=== PATIENT | female | born 1955 | race American Indian/Alaskan Native ===

== ENCOUNTER 2019-05-05 13:07 | Emergency (ER) | payer OTHER ==
--- NOTE | 2019-05-05 13:30 | Event Note ---
ED Screening Note Date of service: 05/05/19 Time: 13:24 ED Screening Note: 63 y o female was called by her PCP and told to go to ER for evaluation of abnormal labs cc of mid sternal chest pain states resolved This initial assessment/diagnostic orders/clinical plan/treatment(s) is/are subject to change based on patients health status, clinical progression and re- assessment by fellow clinical providers in the ED. Further treatment and workup at subsequent clinical providers discretion. Patient/guardian urged not to elope from the ED as their condition may be serious if not clinically assessed and managed. Initial orders include: cbc, cmp
[2019-05-05 16:13] LABS: Basophils % (Auto) 1.1 % (0.0-1.8); Eosinophils % (Auto) 1.3 % (0.0-4.3); Hemoglobin 12.2 gm/dl (10.1-14.3); Lymphocytes # (Auto) 1.1 K/mm3 (1.2-5.4); Lymphocytes % (Auto) 40.2 % (13.4-35.0); Mean Corpuscular HGB Conc 34 % (30-34); Mean Corpuscular Volume 98 fl (79-97); Monocytes # (Auto) 0.2 K/mm3 (0.0-0.8); Monocytes % (Auto) 7.5 % (0.0-7.3); Platelet Count 202 K/mm3 (140-440); Red Blood Count 3.69 M/mm3 (3.65-5.03); Red Cell Distribution Width 15.7 % (13.2-15.2)
[2019-05-05 16:30] LABS: Alanine Aminotransferase 25 units/L (7-56); Albumin 5.1 g/dL (3.9-5); BUN/Creatinine Ratio 14; Blood Urea Nitrogen 10 mg/dL (7-17); Calcium 9.4 mg/dL (8.4-10.2); Hemolysis Index 8
[2019-05-05] MEDS ORDERED: ONDANSETRON 4 MG/2 ML INJ IV ONE (18:15)
[2019-05-05] MEDS ORDERED: SODIUM CHLORIDE 0.9% 1000 ML 1,000 ML IV ONE (18:15)
--- NOTE | 2019-05-05 18:17 | Emergency Department Report ---
ED Abdominal Pain HPI - General Chief Complaint: Abdominal Pain Stated Complaint: HIGH LABS Time Seen by Provider: 05/05/19 17:48 Source: patient Mode of arrival: Ambulatory Limitations: No Limitations - History of Present Illness Initial Comments: This is a pleasant 63 yo AAF who presents to the ED with a chief complaint of N/V, non radiating epigastric and RUQ pain for the past 2 weeks. She reports she has not been able to tolerate her normal diet since this started due to vomiting with certian foods. She sent to urgent care 2 days ago and had her labs checked and it showed elevated lipase and triglycerides and they told her to come to the ED. She denies hematemesis, melena, hematochezia, fever, chills, night sweats, dizzienss, chest pain, shortness of breath or any other related symptoms. - Related Data Previous Rx's Medication Instructions Recorded Last Taken Type Omeprazole Magnesium [Prilosec] 20 mg PO QDAY #30 suspdr.pkt 05/05/19 Unknown Rx Ondansetron [Zofran Odt] 4 mg PO Q8HR 7 Days #21 tab.rapdis 05/05/19 Unknown Rx Sucralfate [Carafate] 1 gm PO ACHS #60 udc 05/05/19 Unknown Rx Allergies Allergy/AdvReac Type Severity Reaction Status Date / Time codeine AdvReac Unknown Verified 05/05/19 13:17 ED Review of Systems ROS: Stated complaint: HIGH LABS Other details as noted in HPI Constitutional: denies: chills, fever Eyes: denies: eye pain, eye discharge, vision change ENT: denies: ear pain, throat pain Respiratory: denies: cough, shortness of breath, wheezing Cardiovascular: denies: chest pain, palpitations Endocrine: no symptoms reported Gastrointestinal: as per HPI, abdominal pain, nausea, vomiting. denies: diar keanu, constipation, hematemesis, melena, hematochezia Genitourinary: denies: urgency, dysuria, discharge Musculoskeletal: denies: back pain, joint swelling, arthralgia Skin: denies: rash, lesions Neurological: denies: headache, weakness, paresthesias Psychiatric: denies: anxiety, depression Hematological/Lymphatic: denies: easy bleeding, easy bruising ED Past Medical Hx - Past Medical History Previous Medical History?: Yes Hx Hypertension: Yes Additional medical history: high cholesterol - Surgical History Past Surgical History?: Yes Additional Surgical History: knee surgery, appendectomy - Social History Smoking Status: Never Smoker Substance Use Type: None - Medications Home Medications: Home Medications Medication Instructions Recorded Confirmed Last Taken Type Omeprazole Magnesium [Prilosec] 20 mg PO QDAY #30 suspdr.pkt 05/05/19 Unknown Rx Ondansetron [Zofran Odt] 4 mg PO Q8HR 7 Days #21 tab.rapdis 05/05/19 Unknown Rx Sucralfate [Carafate] 1 gm PO ACHS #60 udc 05/05/19 Unknown Rx ED Physical Exam - General Limitations: No Limitations General appearance: alert, in no apparent distress - Head Head exam: Present: atraumatic, normocephalic - Eye Eye exam: Present: normal appearance - ENT ENT exam: Present: mucous membranes moist - Neck Neck exam: Present: normal inspection - Respiratory Respiratory exam: Present: normal lung sounds bilaterally. Absent: respiratory distress - Cardiovascular Cardiovascular Exam: Present: regular rate, normal rhythm. Absent: systolic murmur, diastolic murmur, rubs, gallop - GI/Abdominal GI/Abdominal exam: Present: soft, tenderness (mild epigastric tenderness to palpation, negative Phillips sign, negative McBurney's point tenderness, no rebound or guarding normal bowel sounds), normal bowel sounds - Extremities Exam Extremities exam: Present: normal inspection - Back Exam Back exam: Present: normal inspection - Neurological Exam Neurological exam: Present: alert, oriented X3 - Psychiatric Psychiatric exam: Present: normal affect, normal mood - Skin Skin exam: Present: warm, dry, intact, normal color. Absent: rash ED Medical Decision Making - Lab Data Result diagrams: 05/05/19 15:56 05/05/19 15:56 - Medical Decision Making Patient is nontoxic in no acute distress. Presents with epigastric abdominal pain primarily after eating. Has seen GI as recently as one year ago and had an endoscopy and colonoscopy that showed inflammation of the stomach. She was originally on a PPI however stopped taking it. She has a follow-up appointment with her GI doctor next month on the . Clinically she had no evidence of cholecystitis. Liver function and bili were normal and there is no Phillips sign on exam. CT of the abdomen did not show any evidence of cholecystitis or any other acute process. Her lipase was slightly above the upper limit of normal at the urgent care her lipase was 400 however here it had decreased in the 200s. I recommended increase by mouth hydration and following up with her primary care doctor and GI specialist. I suspect this could also be related to pain from peptic ulcer disease and will send home with Prilosec and Carafate. Educated about GERD and symptoms of PUD including avoiding NSAIDs. I also considered ACS however the patient had no chest pain, shortness of breath, or exertional symptoms. I did order an EKG however the patient did not want to wait for this and decided she wanted to go. She understood that without this could not rule out a potential condition however again this time and think this is very unlikely. I also considered PE however without any pleuritic pain, shortness of breath, hemoptysis, recent travel, lower extremity edema and a low risk by well's score think this is unlikely. Patient was given strict return precautions for any change or worsening symptoms. - Differential Diagnosis PUD, ACS, cholecystitis, pancreatitis Critical care attestation.: If time is entered above; I have spent that time in minutes in the direct care of this critically ill patient, excluding procedure time. ED Disposition Clinical Impression: Epigastric abdominal pain Disposition: DC-01 TO HOME OR SELFCARE Is pt being admited?: No Does the pt Need Aspirin: No Condition: Stable Instructions: Abdominal Pain (ED) Prescriptions: Sucralfate [Carafate] 1 gm PO ACHS #60 udc Omeprazole Magnesium [Prilosec] 20 mg PO QDAY #30 suspdr.pkt Ondansetron [Zofran Odt] 4 mg PO Q8HR 7 Days #21 tab.rapdis Referrals: PRIMARY CAREMD [Primary Care Provider] - 3-5 Days CHRYSTAL ENGLE MD [Staff Physician] - 3-5 Days Forms: Work/School Release Form(ED) Time of Disposition: 20:19
--- NOTE | 2019-05-05 19:49 | Cat Scan Report ---
CT of the abdomen and pelvis with contrast INDICATION: Right upper quadrant pain today COMPARISON: None FINDINGS: Lung bases are clear. There is slight fatty infiltration of the liver. The spleen, pancreas , adrenal glands and kidneys show no abnormalities. No definite gallbladder or biliary tree abnormali ty. No fluid or adenopathy in the upper abdomen. CT of the pelvis shows no uterine or adnexal masses. No pelvic or inguinal adenopathy. No hernia or b owel obstruction. No diverticulosis or diverticulitis. Appendix is not seen. IMPRESSION: No acute abnormality. Automated exposure control was utilized to diminish radiation dose. Signer Name: Odin Leal MD Signed: 05/05/2019 7:44 PM Workstation Name: [id number]
[2019-05-05 20:50] VITALS: BP 188/80
== END 2019-05-05 20:49 | disposition home or self-care (01) ==
LOC: ED 13:07
DX: R10.13 Epigastric pain (principal); R11.10 Vomiting, unspecified; I10 Essential (primary) hypertension; Z90.49 Acquired absence of other specified parts of digestive tract; Z98.890 Other specified postprocedural states; Z79.899 Other long term (current) drug therapy; Z88.5 Allergy status to narcotic agent
CPT/HCPCS: 36415; 74177; 80053; 83690; 85025; 96361; 96374; 99284; J2405; J7030; Q9967

== ENCOUNTER 2021-10-30 21:28 | Inpatient (IN) | payer MEDICARE ==
--- NOTE | 2021-10-31 10:18 | Emergency Department Report ---
- General Chief complaint: Weakness Stated complaint: WEAKNESS Time Seen by Provider: 10/31/21 09:15 Source: patient, EMS Mode of arrival: Stretcher Limitations: No Limitations - History of Present Illness Initial comments: 66-year-old female with a history of liver cirrhosis with ascites and recent diagnosis of kidney failure who now presents with generalized weakness after a fall this morning and she could not get up. According to patient she was living with a friend who witnessed the fall when she tripped on one of her bag strap and could not get up by herself. Pt also reports that she usually unable to get up from low stool anyway. She however mentioned that she is able to get off the regular chairs. No other modifying or associated symptoms reported. - Related Data Previous Rx's Medication Instructions Recorded Last Taken Type Furosemide [Lasix TAB] 20 mg PO QDAY #30 tablet 08/02/21 10/12/21 09:00 Rx Lactulose [Cephulac] 20 gm PO BID #100 oral.liqd 08/02/21 Unknown Rx Pantoprazole [Protonix TAB] 40 mg PO BID #60 tablet 08/02/21 10/09/21 17:00 Rx Pantoprazole [Protonix TAB] 40 mg PO BIDAC 30 Days #60 tablet 10/15/21 Unknown Rx Allergies Allergy/AdvReac Type Severity Reaction Status Date / Time codeine AdvReac Unknown Verified 10/11/21 20:47 morphine AdvReac Hives Verified 10/11/21 20:47 ED Review of Systems ROS: Stated complaint: WEAKNESS Other details as noted in HPI Comment: All other systems reviewed and negative Neurological: weakness (Generalized muscle weakness) ED Past Medical Hx - Past Medical History Previous Medical History?: Yes Hx Hypertension: Yes Hx Heart Attack/AMI: No Hx Liver Disease: Yes (2/2 EtOH) Hx Renal Disease: No Hx HIV: No Additional medical history: high cholesterol - Surgical History Past Surgical History?: Yes Hx Appendectomy: Yes Additional Surgical History: knee surgery, appendectomy - Social History Smoking Status: Never Smoker Substance Use Type: None - Medications Home Medications: Home Medications Medication Instructions Recorded Confirmed Last Taken Type Furosemide [Lasix TAB] 20 mg PO QDAY #30 tablet 08/02/21 10/12/21 10/12/21 09:00 Rx Lactulose [Cephulac] 20 gm PO BID #100 oral.liqd 08/02/21 10/12/21 Unknown Rx Pantoprazole [Protonix TAB] 40 mg PO BID #60 tablet 08/02/21 10/12/21 10/09/21 17:00 Rx Pantoprazole [Protonix TAB] 40 mg PO BIDAC 30 Days #60 tablet 10/15/21 Unknown Rx ED Physical Exam - General Limitations: No Limitations General appearance: alert, in no apparent distress - Head Head exam: Present: normal inspection - Eye Eye exam: Present: normal appearance Pupils: Present: normal accommodation - ENT ENT exam: Present: normal exam, normal orophraynx, mucous membranes moist - Neck Neck exam: Present: normal inspection, full ROM. Absent: tenderness - Respiratory Respiratory exam: Present: normal lung sounds bilaterally. Absent: respiratory distress, chest wall tenderness - Cardiovascular Cardiovascular Exam: Present: regular rate, normal rhythm, normal heart sounds - GI/Abdominal GI/Abdominal exam: Present: distended, tenderness (With very mild diffuse tenderness to palpation), hypoactive bowel sounds. Absent: guarding, rebound - Extremities Exam Extremities exam: Present: pedal edema (Bilateral 2+ pitting edema) - Back Exam Back exam: Absent: tenderness - Neurological Exam Neurological exam: Present: alert, oriented X3 - Psychiatric Psychiatric exam: Present: normal affect, normal mood - Skin Skin exam: Present: warm, cyanosis ED Course Vital Signs 10/30/21 10/31/21 10/31/21 21:38 09:04 09:16 Temperature 98.1 F Pulse Rate 100 H Respiratory 16 16 Rate Blood Pressure 98/66 [Right] O2 Sat by Pulse 98 100 100 Oximetry - Reevaluation(s) Reevaluation #1: 10/31/21 10:23 here with generalized muscle weakness and could not get up after a fall-- pt reports problem getting up from low level stool usually-- however as this could be acute on chronic issues so will check routine labs including CBC and CMP for any infectious process or electrolyte abnormality. We will also check TSH for thyroid profile to rule out any thyroid abnormality as a cause. Lactic acid, and ammonia and total creatinine kinase level will also be check for reference. 10/31/21 10:27 Considering the patient denies any joint pain no bony imaging at this point will make any difference. 10/31/21 10:29 Patient also denied any loss of consciousness or headache at this point so no CT scan of the brain indicated at this point. 10/31/21 11:21 I got a call from The lab with patient hemoglobin is 6.2/18.7 hematocrit--however in reviewing this patient's lab this seems to be chronic with baseline between 7- 8.8 hematocrit. Last visit what October 14 with hemoglobin of 8.8 and hematocrit of 25.9 mg/dL--compared to today. Patient however denies any bloody stool or hematemesis. However patient when asked told me that she had a history of PUD and have had EGD and colonoscopy done in the past. Patient also mention to me that she had blood transfusion about 2 months ago. We will consider admitting this patient with RBC transfusion of about 2 units to optimize this patient hemoglobin. Acute on chronic anemia likely contributed to this patient generalized muscle weakness. Reevaluation #2: 10/31/21 11:[address] Burger who suggested getting hip xray to rule out any fracture. I documented that patient denies any hip pain or having any tenderness to palpation. ED Medical Decision Making - Lab Data Result diagrams: 10/31/21 10:15 Critical care attestation.: If time is entered above; I have spent that time in minutes in the direct care of this critically ill patient, excluding procedure time. ED Disposition Clinical Impression: Generalized muscle weakness Fall Qualifiers: Encounter type: initial encounter Qualified Code(s): W19.XXXA - Unspecified fall, initial encounter Anemia Qualifiers: Anemia type: unspecified type Qualified Code(s): D64.9 - Anemia, unspecified Liver cirrhosis Qualifiers: Hepatic cirrhosis type: unspecified hepatic cirrhosis Ascites presence: with ascites Qualified Code(s): K74.60 - Unspecified cirrhosis of liver; R18.8 - Other ascites Disposition: 09 ADMITTED INPATIENT Is pt being admited?: Yes Does the pt Need Aspirin: No Condition: Stable Referrals: PRIMARY CARE,MD [Primary Care Provider] - 3-5 Days
[2021-10-31 10:35] LABS: Basophils # (Auto) 0.1 K/mm3 (0.0-0.1); Eosinophils % (Auto) 0.2 % (0.0-4.3); Hemoglobin 6.2 gm/dl (10.1-14.3); Lymphocytes # (Auto) 1.6 K/mm3 (1.2-5.4); Lymphocytes % (Auto) 21.1 % (13.4-35.0); Mean Corpuscular HGB Conc 33 % (30-34); Mean Corpuscular Volume 96 fl (79-97); Monocytes # (Auto) 0.8 K/mm3 (0.0-0.8); Monocytes % (Auto) 10.3 % (0.0-7.3); Platelet Count 265 K/mm3 (140-440); Red Blood Count 1.95 M/mm3 (3.65-5.03); Red Cell Distribution Width 19.1 % (13.2-15.2)
[2021-10-31 10:39] LABS: Hematocrit 18.7 % (30.3-42.9)
[2021-10-31] MEDS ORDERED: ONDANSETRON 4 MG/2 ML INJ IV PRN ×2 (11:28→21:01)
[2021-10-31] MEDS ORDERED: oxyCODONE /ACETAMINOPHEN 5-325MG TAB PO PRN (11:28)
[2021-10-31] MEDS ORDERED: ACETAMINOPHEN 325 MG TAB PO PRN ×2 (11:28→20:59)
[2021-10-31 11:49] LABS: Albumin 2.8 g/dL (3.9-5)
--- NOTE | 2021-10-31 12:17 | XRay Report ---
BILATERAL HIPS AND PELVIS 2 VIEWS INDICATION / CLINICAL INFORMATION: Bilateral hip and pelvic pain after fall COMPARISON: CT 10/11/2021 FINDINGS: BONES / JOINT(S): No acute fracture or subluxation. 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 SOFT TISSUES: No significant abnormality. ADDITIONAL FINDINGS: None. IMPRESSION: No acute findings. Signer Name: Christ Conklin MD Signed: 10/31/2021 12:12 PM Workstation Name: [id number]
[2021-10-31 12:34] LABS: Chol/HDL Ratio 5.73 %
[2021-10-31] MEDS ORDERED: SODIUM CHLORIDE 0.9% 1000 ML 1,000 ML ONE (16:29)
[2021-10-31 18:05] LABS: Bacteria,Urine 1+ /HPF (Negative); Bilirubin,Urine NEG (Negative); Blood,Urine NEG (Negative); Color,Urine Amber (Yellow); Hyaline Casts,Urine 49 /LPF; Mucus,Urine FEW /HPF; Protein,Urine <15 mg/dL mg/dL (Negative)
[2021-10-31 18:13] LABS: Amphetamine Screen,Urine PRESUMPTIVE NEGATIVE; Benzodiazepines Screen,Urine PRESUMPTIVE NEGATIVE; Cannabinoid Screen,Urine PRESUMPTIVE NEGATIVE; Cocaine Screen,Urine PRESUMPTIVE NEGATIVE; Methadone Screen,Urine PRESUMPTIVE NEGATIVE; Opiate Screen,Urine PRESUMPTIVE NEGATIVE
[2021-10-31] MEDS ORDERED: MORPHINE 2 MG/1 ML INJ IV PRN (20:59)
[2021-10-31] MEDS ORDERED: METOCLOPRAMIDE 10 MG/2 ML INJ IV PRN (20:59)
[2021-10-31] MEDS ORDERED: SODIUM CHLORIDE 0.9% 500 ML 500 ML IV ONE (21:03)
--- NOTE | 2021-10-31 21:16 | History and Physical Report ---
History of Present Illness Date of examination: 10/31/21 Date of admission: 10/31/21 11:31 Chief complaint: Severe weakness. Since a.m. Unable to get up after the fall History of present illness: 66-year-old female with a history of liver cirrhosis with ascites and recent diagnosis of kidney failure who now presents with generalized weakness after a fall this morning and she could not get up. According to patient she was living with a friend who witnessed the fall when she tripped on one of her bag strap and could not get up by herself. Pt also reports that she usually unable to get up from low stool anyway. She however mentioned that she is able to get off the regular chairs. No other modifying or associated symptoms reported. ED course: Patient has hemoglobin of 6.2 and severe ascites---hence admission for blood transfusion and paracentesis - Past Medical History --Previous Medical History?: Yes --Hypertension: Yes --Liver Disease: Yes (2/2 EtOH) --Additional medical history: high cholesterol - Surgical History --Past Surgical History?: Yes --Appendectomy: Yes --Additional Surgical History: knee surgery, appendectomy - Social History Smoking Status: Never Smoker Substance Use Type: None Review of Systems ROS: Stated complaint: WEAKNESS Other details as noted in HPI Comment: All other systems reviewed and negative Neurological: weakness (Generalized muscle weakness) Medications and Allergies Allergies Allergy/AdvReac Type Severity Reaction Status Date / Time codeine AdvReac Unknown Verified 10/11/21 20:47 morphine AdvReac Hives Verified 10/11/21 20:47 Home Medications Medication Instructions Recorded Confirmed Last Taken Type Furosemide [Lasix TAB] 20 mg PO QDAY #30 tablet 08/02/21 10/12/21 10/12/21 09:00 Rx Lactulose [Cephulac] 20 gm PO BID #100 oral.liqd 08/02/21 10/12/21 Unknown Rx Pantoprazole [Protonix TAB] 40 mg PO BID #60 tablet 08/02/21 10/12/21 10/09/21 17:00 Rx Pantoprazole [Protonix TAB] 40 mg PO BIDAC 30 Days #60 tablet 10/15/21 Unknown Rx Active Meds: Active Medications Acetaminophen (Acetaminophen 325 Mg Tab) 650 mg PO Q4H PRN PRN Reason: Pain MILD(1-3)/Fever >100.5/FLORES Ondansetron HCl (Ondansetron 4 Mg/2 Ml Inj) 4 mg IV Q8H PRN PRN Reason: Nausea And Vomiting Oxycodone/Acetaminophen (Oxycodone /Acetaminophen 5-325mg Tab) 1 tab PO Q6H PRN PRN Reason: Pain, Moderate (4-6) Sodium Chloride (Sodium Chloride 0.9% 10 Ml Flush Syringe) 10 ml IV BID AYO Sodium Chloride (Sodium Chloride 0.9% 10 Ml Flush Syringe) 10 ml IV PRN PRN PRN Reason: LINE FLUSH Exam - Constitutional Vitals: Temp Pulse Resp BP Pulse Ox 97.8 F 92 H 13 109/69 99 10/31/21 18:10 10/31/21 20:20 10/31/21 20:20 10/31/21 20:20 10/31/21 20:20 General appearance: Present: no acute distress, well-nourished - EENT Eyes: Present: PERRL ENT: hearing intact, clear oral mucosa - Neck Neck: Present: supple, normal ROM - Respiratory Respiratory effort: normal Respiratory: bilateral: CTA - Cardiovascular Heart rate: 78 Rhythm: regular Heart Sounds: Present: S1 & S2. Absent: rub, click - Extremities Extremities: pulses symmetrical, No edema Peripheral Pulses: within normal limits - Abdominal General gastrointestinal: Present: distended, normal bowel sounds, other (Abdomen severely distended) Female genitourinary: Present: normal - Rectal Rectal Exam: stool brown - Integumentary Integumentary: Present: clear, warm, dry - Musculoskeletal Musculoskeletal: gait normal, strength equal bilaterally - Psychiatric Psychiatric: appropriate mood/affect, intact judgment & insight - Neurologic Neurologic: CNII-XII intact, moves all extremities - Allied Health Allied health notes reviewed: nursing, case management HEART Score - HEART Score Troponin: Troponin T 0.057 ng/mL (0.00-0.029) H 10/31/21 10:15 Results - Labs CBC & Chem 7: 10/31/21 10:15 10/31/21 10:15 Labs: Laboratory Last Values WBC 7.4 K/mm3 (4.5-11.0) 10/31/21 10:15 RBC 1.95 M/mm3 (3.65-5.03) L 10/31/21 10:15 Hgb 6.2 gm/dl (10.1-14.3) L 10/31/21 10:15 Hct 18.7 % (30.3-42.9) L* 10/31/21 10:15 MCV 96 fl (79-97) 10/31/21 10:15 MCH 32 pg (28-32) 10/31/21 10:15 MCHC 33 % (30-34) 10/31/21 10:15 RDW 19.1 % (13.2-15.2) H 10/31/21 10:15 Plt Count 265 K/mm3 (140-440) 10/31/21 10:15 Lymph % (Auto) 21.1 % (13.4-35.0) 10/31/21 10:15 [place] % (Auto) 10.3 % (0.0-7.3) H 10/31/21 10:15 Eos % (Auto) 0.2 % (0.0-4.3) 10/31/21 10:15 Baso % (Auto) 1.0 % (0.0-1.8) 10/31/21 10:15 Lymph # (Auto) 1.6 K/mm3 (1.2-5.4) 10/31/21 10:15 [place] # (Auto) 0.8 K/mm3 (0.0-0.8) 10/31/21 10:15 Eos # (Auto) 0.0 K/mm3 (0.0-0.4) 10/31/21 10:15 Baso # (Auto) 0.1 K/mm3 (0.0-0.1) 10/31/21 10:15 Seg Neutrophils % 67.4 % (40.0-70.0) 10/31/21 10:15 Seg Neutrophils # 5.0 K/mm3 (1.8-7.7) 10/31/21 10:15 Sodium 138 mmol/L (137-145) 10/31/21 10:15 Potassium 4.9 mmol/L (3.6-5.0) 10/31/21 10:15 Chloride 101.7 mmol/L (98-107) 10/31/21 10:15 Carbon Dioxide 22 mmol/L (22-30) 10/31/21 10:15 Anion Gap 19 mmol/L 10/31/21 10:15 BUN 51 mg/dL (7-17) H 10/31/21 10:15 Creatinine 2.4 mg/dL (0.6-1.2) H 10/31/21 10:15 Estimated GFR 24 ml/min 10/31/21 10:15 BUN/Creatinine Ratio 21 % 10/31/21 10:15 Glucose 104 mg/dL (65-100) H 10/31/21 10:15 Lactic Acid 2.10 mmol/L (0.7-2.0) H* 10/31/21 14:33 Calcium 9.0 mg/dL (8.4-10.2) 10/31/21 10:15 Total Bilirubin 1.90 mg/dL (0.1-1.2) H 10/31/21 10:15 AST 74 units/L (5-40) H 10/31/21 10:15 ALT 40 units/L (7-56) 10/31/21 10:15 Alkaline Phosphatase 176 units/L (35-129) H 10/31/21 10:15 Troponin T 0.057 ng/mL (0.00-0.029) H 10/31/21 10:15 Total Protein 7.4 g/dL (6.3-8.2) 10/31/21 10:15 Albumin 2.8 g/dL (3.9-5) L 10/31/21 10:15 Albumin/Globulin Ratio 0.6 % 10/31/21 10:15 Triglycerides 137 mg/dL (2-149) 10/31/21 10:15 Cholesterol 241 mg/dL (50-199) H 10/31/21 10:15 LDL Cholesterol Direct 152 mg/dL (50-130) H 10/31/21 10:15 HDL Cholesterol 42 mg/dL (40-59) 10/31/21 10:15 Cholesterol/HDL Ratio 5.73 % 10/31/21 10:15 Lipase 78 units/L (13-60) H 10/31/21 10:15 TSH 3.300 mlU/mL (0.270-4.200) 10/31/21 10:15 Urine Color Madhavi (Yellow) 10/31/21 17:48 Urine Turbidity Clear (Clear) 10/31/21 17:48 Urine pH 5.0 (5.0-7.0) 10/31/21 17:48 Ur Specific [place] 1.016 (1.003-1.030) 10/31/21 17:48 Urine Protein <15 mg/dl mg/dL (Negative) 10/31/21 17:48 Urine Glucose (UA) Neg mg/dL (Negative) 10/31/21 17:48 Urine Ketones Tr mg/dL (Negative) 10/31/21 17:48 Urine Blood Neg (Negative) 10/31/21 17:48 Urine Nitrite Neg (Negative) 10/31/21 17:48 Urine Bilirubin Neg (Negative) 10/31/21 17:48 Urine Urobilinogen 2.0 mg/dL (<2.0) 10/31/21 17:48 Ur Leukocyte Esterase Neg (Negative) 10/31/21 17:48 Urine WBC (Auto) 2.0 /HPF (0.0-6.0) 10/31/21 17:48 Urine RBC (Auto) 5.0 /HPF (0.0-6.0) 10/31/21 17:48 U Epithel Cells (Auto) 10.0 /HPF (0-13.0) 10/31/21 17:48 Urine Bacteria (Auto) 1+ /HPF (Negative) 10/31/21 17:48 Hyaline Casts 49 /LPF 10/31/21 17:48 Urine Mucus Few /HPF 10/31/21 17:48 Urine Opiates Screen Presumptive negative 10/31/21 17:48 Urine Methadone Screen Presumptive negative 10/31/21 17:48 Ur Barbiturates Screen Presumptive negative 10/31/21 17:48 Ur Phencyclidine Scrn Presumptive negative 10/31/21 17:48 Ur Amphetamines Screen Presumptive negative 10/31/21 17:48 U Benzodiazepines Scrn Presumptive negative 10/31/21 17:48 Urine Cocaine Screen Presumptive negative 10/31/21 17:48 U Marijuana (THC) Screen Presumptive negative 10/31/21 17:48 Drugs of Abuse Note Disclamer 10/31/21 17:48 Blood Type B POSITIVE 10/31/21 14:30 Antibody Screen Negative 10/31/21 14:30 Crossmatch See Detail 10/31/21 14:30 Short CBC 10/31/21 Range/Units 10:15 WBC 7.4 (4.5-11.0) K/mm3 Hgb 6.2 L (10.1-14.3) gm/dl Hct 18.7 L* (30.3-42.9) % Plt Count 265 (140-440) K/mm3 BMP 10/31/21 10:15 Sodium 138 Potassium 4.9 Chloride 101.7 Carbon Dioxide 22 BUN 51 H Creatinine 2.4 H Glucose 104 H Calcium 9.0 Cardiac Enzymes 10/31/21 Range/Units 10:15 Troponin T 0.057 H (0.00-0.029) ng/mL Liver Function 10/31/21 Range/Units 10:15 Total Bilirubin 1.90 H (0.1-1.2) mg/dL AST 74 H (5-40) units/L ALT 40 (7-56) units/L Alkaline Phosphatase 176 H (35-129) units/L Albumin 2.8 L (3.9-5) g/dL Urine 10/31/21 Range/Units 17:48 Urine Color Madhavi (Yellow) Urine pH 5.0 (5.0-7.0) Ur Specific [place] 1.016 (1.003-1.030) Urine Protein <15 mg/dl (Negative) mg/dL Urine Glucose (UA) Neg (Negative) mg/dL - Imaging and Cardiology Imaging and Cardiology: Hip/pelvis x-ray no acute findings Assessment and Plan Advance Directives: Yes (Full code) - Patient Problems (1) Symptomatic anemia Current Visit: Yes Status: Acute Plan to address problem: Patient to be transfused 1 to 2 units of blood Etiology unclear Stool is guaiac negative Probably nutritional (2) CESAR (acute kidney injury) Current Visit: No Status: Acute Plan to address problem: Nephrology consulted Patient on Lasix which may be contributing Vasomotor nephropathy (3) Ascites Current Visit: Yes Status: Chronic Qualifiers: Ascites type: due to alcoholic cirrhosis Qualified Code(s): K70.31 - Alcoholic cirrhosis of liver with ascites Plan to address problem: Patient to get paracentesis in a.m. by radiology department Ultrasound-guided paracentesis Fluid to be sent for chemistry and cell count (4) Hypertension Current Visit: Yes Status: Chronic Qualifiers: Hypertension type: primary hypertension Qualified Code(s): I10 - Essential (primary) hypertension Plan to address problem: Continue antihypertensive meds and adjust medications (5) Elevated lactic acid level Current Visit: Yes Status: Acute Plan to address problem: Etiology unclear No signs of infection No antibiotics were started (6) Transaminitis Current Visit: Yes Status: Chronic Plan to address problem: Secondary to cirrhosis Hepatitis profile (7) Malnutrition Current Visit: Yes Status: Chronic Qualifiers: Protein-calorie malnutrition severity: moderate Plan to address problem: IV supplements initiated (8) DVT prophylaxis Current Visit: Yes Status: Acute Plan to address problem: On anticoagulation GI prophylaxis (9) Advance care planning Current Visit: Yes Status: Acute Plan to address problem: Disease education collected, care plan discussed, diagnosis discussed, prognosis discussed. Patient is full code. Patient acknowledges understanding and agreement with care plan. +30 minutes.
[2021-10-31] MEDS: SODIUM CHLORIDE 0.9% 500 ML 500 ML IV ONE (22:32)
[2021-11-01] MEDS ORDERED: FUROSEMIDE 40 MG/4 ML INJ IV SCH (06:00)
[2021-11-01] MEDS ORDERED: LIP THERAPY VASELINE TP PRN (07:00)
[2021-11-01 07:47] LABS: Basophils # (Auto) 0.1 K/mm3 (0.0-0.1); Basophils % (Auto) 1.5 % (0.0-1.8); Eosinophils # (Auto) 0.1 K/mm3 (0.0-0.4); Eosinophils % (Auto) 1.1 % (0.0-4.3); Hematocrit 20.2 % (30.3-42.9); Hemoglobin 6.9 gm/dl (10.1-14.3); Lymphocytes % (Auto) 19.3 % (13.4-35.0); Mean Corpuscular HGB Conc 34 % (30-34); Mean Corpuscular Volume 96 fl (79-97); Monocytes # (Auto) 0.6 K/mm3 (0.0-0.8); Monocytes % (Auto) 11.2 % (0.0-7.3); Platelet Count 224 K/mm3 (140-440); Red Blood Count 2.11 M/mm3 (3.65-5.03); Red Cell Distribution Width 17.5 % (13.2-15.2)
[2021-11-01 08:13] LABS: Albumin 2.6 g/dL (3.9-5); Calcium 8.7 mg/dL (8.4-10.2)
--- NOTE | 2021-11-01 09:35 | Consultation ---
History of Present Illness - Reason for Consult Consult date: 11/01/21 acute renal failure, chronic renal failure - History of Present Illness 66-year-old female with a history of liver cirrhosis with ascites and recent diagnosis of kidney failure who now presents with generalized weakness after a fall this morning and she could not get up. According to patient she was living with a friend who witnessed the fall when she tripped on one of her bag strap and could not get up by herself. Pt also reports that she usually unable to get up from low stool anyway. She however mentioned that she is able to get off the regular chairs. No other modifying or associated symptoms reported. ROS: Stated complaint: WEAKNESS Other details as noted in HPI Comment: All other systems reviewed and negative Neurological: weakness (Generalized muscle weakness) - Past Medical History Previous Medical History?: Yes Hx Hypertension: Yes Hx Heart Attack/AMI: No Hx Liver Disease: Yes (2/2 EtOH) Hx Renal Disease: No Hx HIV: No Additional medical history: high cholesterol - Surgical History Past Surgical History?: Yes Hx Appendectomy: Yes Additional Surgical History: knee surgery, appendectomy - Social History Smoking Status: Never Smoker Substance Use Type: None Medications and Allergies Allergies Allergy/AdvReac Type Severity Reaction Status Date / Time codeine AdvReac Unknown Verified 10/11/21 20:47 morphine AdvReac Hives Verified 10/11/21 20:47 Home Medications Medication Instructions Recorded Confirmed Last Taken Type Furosemide [Lasix TAB] 20 mg PO QDAY #30 tablet 08/02/21 10/12/21 10/12/21 09:00 Rx Lactulose [Cephulac] 20 gm PO BID #100 oral.liqd 08/02/21 10/12/21 Unknown Rx Pantoprazole [Protonix TAB] 40 mg PO BID #60 tablet 08/02/21 10/12/21 10/09/21 17:00 Rx Pantoprazole [Protonix TAB] 40 mg PO BIDAC 30 Days #60 tablet 10/15/21 Unknown Rx Active Meds: Active Medications Acetaminophen (Acetaminophen 325 Mg Tab) 650 mg PO Q4H PRN PRN Reason: Pain MILD(1-3)/Fever >100.5/FLORES Furosemide (Furosemide 40 Mg/4 Ml Inj) 40 mg IV 0600,1800 AYO Hydrophilic Ointment (Lip Therapy Vaseline) 1 applic TP DIRECT PRN PRN Reason: Dry Lips Metoclopramide HCl (Metoclopramide 10 Mg/2 Ml Inj) 10 mg IV Q6H PRN PRN Reason: Nausea And Vomiting Morphine Sulfate (Morphine 2 Mg/1 Ml Inj) 2 mg IV Q4H PRN PRN Reason: Pain, Moderate (4-6) Ondansetron HCl (Ondansetron 4 Mg/2 Ml Inj) 4 mg IV Q3H PRN PRN Reason: Nausea And Vomiting Oxycodone/Acetaminophen (Oxycodone /Acetaminophen 5-325mg Tab) 1 tab PO Q6H PRN PRN Reason: Pain, Moderate (4-6) Sodium Chloride (Sodium Chloride 0.9% 10 Ml Flush Syringe) 10 ml IV BID [facility] Last Admin: 10/31/21 22:33 Dose: 10 ml Sodium Chloride (Sodium Chloride 0.9% 10 Ml Flush Syringe) 10 ml IV PRN PRN PRN Reason: LINE FLUSH Sodium Chloride (Sodium Chloride 0.9% 10 Ml Flush Syringe) 10 ml IV BID [facility] Sodium Chloride (Sodium Chloride 0.9% 10 Ml Flush Syringe) 10 ml IV PRN PRN PRN Reason: LINE FLUSH Spironolactone (Spironolactone 50 Mg Tab) 50 mg PO QDAY [facility] Exam - Vital Signs Vital signs: Vital Signs Temp Pulse Resp BP Pulse Ox 98.1 F 100 H 16 98/66 98 10/30/21 21:38 10/30/21 21:38 10/30/21 21:38 10/30/21 21:38 10/30/21 21:38 - Physical Exam Narrative exam: - General Limitations: No Limitations General appearance: alert, in no apparent distress - Head Head exam: Present: normal inspection - Eye Eye exam: Present: normal appearance Pupils: Present: normal accommodation - ENT ENT exam: Present: normal exam, normal orophraynx, mucous membranes moist - Neck Neck exam: Present: normal inspection, full ROM. Absent: tenderness - Respiratory Respiratory exam: Present: normal lung sounds bilaterally. Absent: respiratory distress, chest wall tenderness - Cardiovascular Cardiovascular Exam: Present: regular rate, normal rhythm, normal heart sounds - GI/Abdominal GI/Abdominal exam: Present: distended, tenderness (With very mild diffuse tenderness to palpation), hypoactive bowel sounds. Absent: guarding, rebound - Extremities Exam Extremities exam: Present: pedal edema (Bilateral 2+ pitting edema) - Back Exam Back exam: Absent: tenderness - Neurological Exam Neurological exam: Present: alert, oriented X3 - Psychiatric Psychiatric exam: Present: normal affect, normal mood - Skin Skin exam: Present: warm, cyanosis Results - Lab Results 11/01/21 07:17 11/01/21 07:17 Most recent lab results Calcium 8.7 mg/dL (8.4-10.2) 11/01/21 07:17 Assessment and Plan Impression: * CESAR on ckd 09/18--cr 2.9 in September 2021 * hepatorenal sydrome vs volume depletion and ATN * hypotension * Cirrhosis * Metabolic acidosis * Hyperkalemia * anemia of chronic disease--symptomatic * etoh abuse Plan: * no indication for fish straightener * IV lasix and albumin for diuresis * paracentesis prn, albumin with any planned large volume paracentesis * cr is stable since last admission * avoid nephrotoxins * Keep MAP >65 * daily lytes and strict i/os * PRN PRBCs * renal diet * serial hb/hct, prn PRBCs
[2021-11-01] MEDS: SPIRONOLACTONE 50 MG TAB PO SCH ×2 (11:24→22:06)
--- NOTE | 2021-11-01 14:32 | Procedure Note ---
Date of procedure: 11/01/21 Pre-op diagnosis: ascites Post-op diagnosis: same Procedure: US paracentesis Findings: large ascites Anesthesia: local Surgeon: KYLE SALDANA Estimated blood loss: none Pathology: none Specimen disposition: discarded Condition: stable Disposition: floor
--- NOTE | 2021-11-01 14:37 | Ultrasound Report ---
ULTRASOUND-GUIDED PARACENTESIS HISTORY: Ascites. PROCEDURE: The risks (including but not limited to bleeding, infection, and bowel injury) and benefi ts were explained to the patient and informed consent was obtained. A time out procedure was perform ed. Ultrasound was used to evaluate the abdomen and locate the largest ascites fluid pocket. Once the sk in was marked, the procedure site was prepped and draped in the usual sterile fashion and lidocaine w as used for local anesthesia. A 5 [place] centesis catheter was placed. The patient was monitored cl osely throughout the procedure, and a total of 8200 and mL of clear yellow fluid was aspirated. No l abs were ordered. The patient tolerated the procedure well with no complications. IMPRESSION: Successful ultrasound-guided paracentesis as described. Signer Name: Enrrique Godoy Jr, MD Signed: 11/01/2021 2:32 PM Workstation Name: [id number]
[2021-11-01] MEDS: ALBUMIN HUMAN 25% (25 GM/100 ML) INJ IV SCH (17:45)
[2021-11-01] MEDS: FUROSEMIDE 20 MG/2 ML INJ IV SCH (18:15)
--- NOTE | 2021-11-01 19:07 | Progress Note ---
Assessment and Plan Assessment and plan: -- Symptomatic anemia Patient received 1 unit of PRBC transfusion Hb improved from 6.2-6.9 Transfuse second unit of PRBC and check H&H Stool is guaiac negative Probably nutritional -- CESAR (acute kidney injury) Nephrology consulted Patient on Lasix which may be contributing Vasomotor nephropathy Mild improvement, creatinine improved from 2.4-2.2 Gentle hydration follow renal recommendations -- Ascites Patient to get paracentesis in a.m. by radiology department Ultrasound-guided paracentesis Fluid to be sent for chemistry and cell count Patient underwent ultrasound-guided paracentesis and removal of 8200 mL of clear peritoneal fluid Patient tolerated the procedure well -- Hypertension Blood pressures in the lower range Hold antihypertensives, closely monitor Fluid bolus as needed -- lactic acidosis Etiology unclear No signs of infection No antibiotics were started Closely monitor --Transaminitis Secondary to cirrhosis Hepatitis profile Consider GI evaluation if needed --severe protein calorie malnutrition Nutrition supplements Supportive care. Nutrition consult --Severe hypoalbuminemia; albumin 2.8 Nutrition supplements, supportive care, nutrition consult --DVT prophylaxis On anticoagulation GI prophylaxis --Advance care planning Disease education collected, care plan discussed, diagnosis discussed, prognosis discussed. Patient is full code. Patient acknowledges understanding and agreement with care plan. +30 minutes. Will closely monitor the patient and adjust management as needed Plan of care reviewed with the patient and her nurse History Interval history: Seen and examined the patient at the bedside Patient's chart and medications reviewed No new events reported by nursing Patient went for ultrasound-guided abdominal paracentesis Vital signs noted Hospitalist Physical - Constitutional Vitals: Temp Pulse Resp BP Pulse Ox 97.8 F 91 H 18 96/63 98 11/01/21 11:46 11/01/21 11:46 11/01/21 11:46 11/01/21 11:46 11/01/21 11:46 General appearance: Present: no acute distress, well-nourished - EENT Eyes: Present: PERRL, EOM intact - Neck Neck: Present: supple, normal ROM - Respiratory Respiratory effort: normal Respiratory: bilateral: diminished, rales, negative: rhonchi, wheezing - Cardiovascular Rhythm: regular Heart Sounds: Present: S1 & S2 - Extremities Extremities: no ischemia, No edema - Abdominal General gastrointestinal: soft, non-tender, distended (Ascites), normal bowel sounds - Integumentary Integumentary: Present: clear, warm - Psychiatric Psychiatric: appropriate mood/affect, cooperative - Neurologic Neurologic: moves all extremities HEART Score - HEART Score Troponin: Troponin T 0.057 ng/mL (0.00-0.029) H 10/31/21 10:15 Results - Labs CBC & Chem 7: 11/01/21 07:17 11/01/21 07:17 Labs: Laboratory Last Values WBC 5.0 K/mm3 (4.5-11.0) 11/01/21 07:17 RBC 2.11 M/mm3 (3.65-5.03) L 11/01/21 07:17 Hgb 6.9 gm/dl (10.1-14.3) L 11/01/21 07:17 Hct 20.2 % (30.3-42.9) L 11/01/21 07:17 MCV 96 fl (79-97) 11/01/21 07:17 MCH 33 pg (28-32) H 11/01/21 07:17 MCHC 34 % (30-34) 11/01/21 07:17 RDW 17.5 % (13.2-15.2) H 11/01/21 07:17 Plt Count 224 K/mm3 (140-440) 11/01/21 07:17 Lymph % (Auto) 19.3 % (13.4-35.0) 11/01/21 07:17 [place] % (Auto) 11.2 % (0.0-7.3) H 11/01/21 07:17 Eos % (Auto) 1.1 % (0.0-4.3) 11/01/21 07:17 Baso % (Auto) 1.5 % (0.0-1.8) 11/01/21 07:17 Lymph # (Auto) 1.0 K/mm3 (1.2-5.4) L 11/01/21 07:17 [place] # (Auto) 0.6 K/mm3 (0.0-0.8) 11/01/21 07:17 Eos # (Auto) 0.1 K/mm3 (0.0-0.4) 11/01/21 07:17 Baso # (Auto) 0.1 K/mm3 (0.0-0.1) 11/01/21 07:17 Seg Neutrophils % 66.9 % (40.0-70.0) 11/01/21 07:17 Seg Neutrophils # 3.3 K/mm3 (1.8-7.7) 11/01/21 07:17 Sodium 138 mmol/L (137-145) 11/01/21 07:17 Potassium 4.1 mmol/L (3.6-5.0) 11/01/21 07:17 Chloride 103.7 mmol/L (98-107) 11/01/21 07:17 Carbon Dioxide 24 mmol/L (22-30) 11/01/21 07:17 Anion Gap 14 mmol/L 11/01/21 07:17 BUN 45 mg/dL (7-17) H 11/01/21 07:17 Creatinine 2.2 mg/dL (0.6-1.2) H 11/01/21 07:17 Estimated GFR 27 ml/min 11/01/21 07:17 BUN/Creatinine Ratio 20 % 11/01/21 07:17 Glucose 86 mg/dL (65-100) 11/01/21 07:17 Lactic Acid 2.10 mmol/L (0.7-2.0) H* 10/31/21 14:33 Calcium 8.7 mg/dL (8.4-10.2) 11/01/21 07:17 Total Bilirubin 2.00 mg/dL (0.1-1.2) H 11/01/21 07:17 AST 35 units/L (5-40) 11/01/21 07:17 ALT 13 units/L (7-56) 11/01/21 07:17 Alkaline Phosphatase 148 units/L (35-129) H 11/01/21 07:17 Troponin T 0.057 ng/mL (0.00-0.029) H 10/31/21 10:15 Total Protein 6.1 g/dL (6.3-8.2) L 11/01/21 07:17 Albumin 2.6 g/dL (3.9-5) L 11/01/21 07:17 Albumin/Globulin Ratio 0.7 % 11/01/21 07:17 Triglycerides 137 mg/dL (2-149) 10/31/21 10:15 Cholesterol 241 mg/dL (50-199) H 10/31/21 10:15 LDL Cholesterol Direct 152 mg/dL (50-130) H 10/31/21 10:15 HDL Cholesterol 42 mg/dL (40-59) 10/31/21 10:15 Cholesterol/HDL Ratio 5.73 % 10/31/21 10:15 Lipase 78 units/L (13-60) H 10/31/21 10:15 TSH 3.300 mlU/mL (0.270-4.200) 10/31/21 10:15 Urine Color Madhavi (Yellow) 10/31/21 17:48 Urine Turbidity Clear (Clear) 10/31/21 17:48 Urine pH 5.0 (5.0-7.0) 10/31/21 17:48 Ur Specific Ethel 1.016 (1.003-1.030) 10/31/21 17:48 Urine Protein <15 mg/dl mg/dL (Negative) 10/31/21 17:48 Urine Glucose (UA) Neg mg/dL (Negative) 10/31/21 17:48 Urine Ketones Tr mg/dL (Negative) 10/31/21 17:48 Urine Blood Neg (Negative) 10/31/21 17:48 Urine Nitrite Neg (Negative) 10/31/21 17:48 Urine Bilirubin Neg (Negative) 10/31/21 17:48 Urine Urobilinogen 2.0 mg/dL (<2.0) 10/31/21 17:48 Ur Leukocyte Esterase Neg (Negative) 10/31/21 17:48 Urine WBC (Auto) 2.0 /HPF (0.0-6.0) 10/31/21 17:48 Urine RBC (Auto) 5.0 /HPF (0.0-6.0) 10/31/21 17:48 U Epithel Cells (Auto) 10.0 /HPF (0-13.0) 10/31/21 17:48 Urine Bacteria (Auto) 1+ /HPF (Negative) 10/31/21 17:48 Hyaline Casts 49 /LPF 10/31/21 17:48 Urine Mucus Few /HPF 10/31/21 17:48 Urine Opiates Screen Presumptive negative 10/31/21 17:48 Urine Methadone Screen Presumptive negative 10/31/21 17:48 Ur Barbiturates Screen Presumptive negative 10/31/21 17:48 Ur Phencyclidine Scrn Presumptive negative 10/31/21 17:48 Ur Amphetamines Screen Presumptive negative 10/31/21 17:48 U Benzodiazepines Scrn Presumptive negative 10/31/21 17:48 Urine Cocaine Screen Presumptive negative 10/31/21 17:48 U Marijuana (THC) Screen Presumptive negative 10/31/21 17:48 Drugs of Abuse Note Disclamer 10/31/21 17:48 Blood Type B POSITIVE 10/31/21 14:30 Antibody Screen Negative 10/31/21 14:30 Crossmatch See Detail 10/31/21 14:30 Castrejon/IV: Voiding Method External Female Catheter Active Medications - Current Medications Current Medications: Generic Name Dose Route Start Last Admin Trade Name Freq PRN Reason Stop Dose Admin Acetaminophen 650 mg 10/31/21 20:59 Acetaminophen 325 Mg Tab PO Q4H PRN Pain MILD(1-3)/Fever >100.5/FLORES Albumin Human 25 gm 11/01/21 12:00 11/01/21 17:45 Albumin Human 25% (25 Gm/100 Ml) Inj IV 25 gm Q12H AYO Administration Furosemide 20 mg 11/01/21 18:00 11/01/21 18:15 Furosemide 20 Mg/2 Ml Inj IV 20 mg 0600,1800 AYO Administration Hydrophilic Ointment 1 applic 11/01/21 07:00 11/01/21 09:47 Lip Therapy Vaseline TP 1 applic DIRECT PRN Administration Dry Lips Metoclopramide HCl 10 mg 10/31/21 20:59 Metoclopramide 10 Mg/2 Ml Inj IV Q6H PRN Nausea And Vomiting Morphine Sulfate 2 mg 10/31/21 20:59 Morphine 2 Mg/1 Ml Inj IV Q4H PRN Pain, Moderate (4-6) Ondansetron HCl 4 mg 10/31/21 21:01 Ondansetron 4 Mg/2 Ml Inj IV Q3H PRN Nausea And Vomiting Oxycodone/Acetaminophen 1 tab 10/31/21 11:28 Oxycodone /Acetaminophen 5-325mg Tab PO Q6H PRN Pain, Moderate (4-6) Sodium Chloride 10 ml 10/31/21 22:00 11/01/21 11:25 Sodium Chloride 0.9% 10 Ml Flush Syringe IV 10 ml BID AYO Administration Sodium Chloride 10 ml 10/31/21 20:59 Sodium Chloride 0.9% 10 Ml Flush Syringe IV PRN PRN LINE FLUSH Spironolactone 50 mg 10/31/21 22:00 11/01/21 11:24 Spironolactone 50 Mg Tab PO 50 mg QDAY AYO Administration Nutrition/Malnutrition Assess - Dietary Evaluation Nutrition/Malnutrition Findings: Nutrition Notes Start: 11/01/21 15:21 Freq: Status: Active Protocol: Document 11/01/21 15:21 LUIS FERNANDO (Rec: 11/01/21 16:10 LUIS FERNANDO [id number]) Nutrition Notes Need for Assessment generated from: MD Order,inventory technician,MST Initial or Follow up Assessment Current Diagnosis Acute Kidney Injury,CKD(stage I-IV),Malnutrition Other Pertinent Diagnosis Hepatic Cirrhosis, CESAR/CKD, Ascites, Fall, Anemia. Current Diet Renal Diet (since B 11/01). Labs/Tests 11/01: BUN 45, Crea 2.2. Pertinent Medications 11/01: Nutritionally unremarkable. Height 5 ft 7 in Weight 67.6 kg [place] Body Weight (kg) 61.36 BMI 23.3 Intake Prior to Admission Poor Weight change and time frame Pt states having, unintentionally, loss between 24 to 33 lb recently. Pt's body weight on chart 79. 379 Kg, I will use instead 67. 6 Kg -from last visit- since it appears more accurate. Unable to reach RN over the phone, will reassess at F/U. Last visit on 10/18/21, Pt's Wt was 67.6 Kg; there is a discrepancy with Pt's statement, instead Pt gained 11.779 Kg (25.9 lb) Previous visit on 08/08/21, Pt 's Wt was 58 Kg, 9.4 Kg less. Weight Status Appropriate Subjective/Other Information RD consult for skin risk, risk of malnutrition and dietary supplementation assessments. No reports available on Pt's PO intake of meals at the time , will assess at F/U. I will recommend to keep the Renal Diet, since it supports better Pt's CESAR/CKD condition, and discontinue Cardiac Diet as well as Dietary Supplements , since they are not necessary at the time. Pt shows no signs of concern for risk of malnutrition at the time, according to Physical Assessment History notes. Pt is on Room Air, O23 saturation @ 100%, according to Physical Assessment History notes. Pt presens ascites, according to Physical Assessment History notes. Procedure on 11/01: US Paracentesis, well tolerated, according to Operative Report notes. Pt shows no signs of concern for skin risk at the time, according to Physical Assessment History notes. Percent of energy/protein needs met: Prescribed Renal Diet provides for energy/protein needs (2, 072 Kcal/77 g) during LOS. Burn Absent Trauma Absent GI Symptoms None Food Allergy No Skin Integrity/Comment Assessment WNL. Minimum of two criteria No #1 Nutrition Diagnosis Altered GI function Comments: Will assess Pt's PO intake of meals and the need for ONS at F/U. Etiology Hepatic Cirrhosis, CESAR/CKD. As Evidenced by Signs and Symptoms Ascites. Is patient on ventilator? No Is Patient Ambulatory and/or Out of Bed No REE-([facility]-confined to bed) 1503.876 Kcal/Kg value to use for calculation 26 Approximate Energy Requirements Using 1758 kcal/Kg Calculation Used for Recommendations Kcal/kg Additional Notes Protein: 0.6-0.8 g/Kg ABW; 41- 54 g/day. Fluids: 1 ml/Kcal, or as per MD. Nutrition Intervention Change Diet Order: Continue Renal Diet. Discontinue Cardiac Diet. Add Supplement/Snack (indicate name/kcal Discontinue D. Suppl. /protein ) Goal #1 Adjust the dietary intervention to better serve Pt's needs and clinical conditions during LOS. Goal #2 Maintain body weight within +/ -3% of admission body weight during LOS. Follow-Up By: 11/08/21 Additional Comments Continue monitoring food tolerance, %PO intake of meals , and BM.
[2021-11-01 20:15] LABS: Hematocrit 24.9 % (30.3-42.9); Hemoglobin 8.4 gm/dl (10.1-14.3)
[2021-11-01] MEDS: HEPARIN 5,000 UNIT/1 ML VIAL SUB-Q SCH (21:57)
[2021-11-01] MEDS: LACTULOSE 20 GM/30 ML ORAL LIQD PO SCH (21:57)
[2021-11-01] MEDS: SODIUM CHLORIDE 0.9% 500 ML 500 ML IV ONE (22:05)
[2021-11-02] MEDS: ALBUMIN HUMAN 25% (25 GM/100 ML) INJ IV SCH (01:03)
[2021-11-02] MEDS: FUROSEMIDE 20 MG/2 ML INJ IV SCH (06:24)
[2021-11-02 07:15] LABS: Basophils # (Auto) 0.1 K/mm3 (0.0-0.1); Basophils % (Auto) 1.1 % (0.0-1.8); Eosinophils % (Auto) 0.7 % (0.0-4.3); Hematocrit 23.4 % (30.3-42.9); Lymphocytes # (Auto) 1.8 K/mm3 (1.2-5.4); Lymphocytes % (Auto) 29.1 % (13.4-35.0); Mean Corpuscular HGB Conc 34 % (30-34); Mean Corpuscular Volume 92 fl (79-97); Monocytes # (Auto) 0.6 K/mm3 (0.0-0.8); Monocytes % (Auto) 10.5 % (0.0-7.3); Platelet Count 234 K/mm3 (140-440); Red Blood Count 2.55 M/mm3 (3.65-5.03); Red Cell Distribution Width 18.8 % (13.2-15.2)
[2021-11-02 07:27] LABS: INR 1.21 (0.87-1.13); Partial Thromboplastin Time 33.3 Sec. (24.2-36.6)
[2021-11-02 07:41] LABS: Calcium 8.7 mg/dL (8.4-10.2)
--- NOTE | 2021-11-02 09:13 | Progress Note ---
Assessment and Plan Assessment and plan: -- Symptomatic anemia Patient received 1 unit of PRBC transfusion Hb improved from 6.2-6.9 Transfuse second unit of PRBC and check H&H Stool is guaiac negative Probably nutritional -- CESAR (acute kidney injury) Nephrology following following Patient on Lasix which may be contributing Vasomotor nephropathy Mild improvement, creatinine improved from 2.4-2.2 Gentle hydration follow renal recommendations -- Ascites s/p Ultrasound-guided paracentesis and removal of 8200 mL of clear peritoneal fluid Fluid not sent for analysis Patient tolerated the procedure well -- Hypertension Blood pressures in the lower range Hold antihypertensives, closely monitor Fluid bolus as needed, midodrine 5 mg 3 times a day Closely monitor -- lactic acidosis Etiology unclear No signs of infection No antibiotics were started Closely monitor --Transaminitis Secondary to cirrhosis Hepatitis profile Consider GI evaluation if needed --severe protein calorie malnutrition Nutrition supplements Supportive care. Nutrition consult --Severe hypoalbuminemia; albumin 2.8 Nutrition supplements, supportive care, nutrition consult --DVT prophylaxis On anticoagulation GI prophylaxis --Advance care planning Disease education collected, care plan discussed, diagnosis discussed, prognosis discussed. Patient is full code. Patient acknowledges understanding and agreement with care plan. +30 minutes. Will closely monitor the patient and adjust management as needed Plan of care reviewed with the patient and her nurse Patient wants to leave the hospital I called next of kin 11/03/2019; Ms. Rey Sandoval at [phone] and discussed in detail patient's condition, tests and reports, treatment plan, patient's overall general condition with Ms. Sandoval and also informed her that Ms. Walter wants to leave the hospital, Ms. Sandoval informed that she left hospital early during last admission and she felt sick immediately, and she refused to take her out AMA, and said she will talk to the patient and convince her. I informed patient's nurse and the patient of my conversation with Ms. Rey Sandoval History Interval history: I have seen and examined the patient at the bedside Patient's chart and medications reviewed Patient feels slightly better However patient's blood pressures are in the lower range Vital signs reviewed Patient wants to go home Wants to be discharged Hospitalist Physical - Constitutional Vitals: Temp Pulse Resp BP Pulse Ox 97.4 F L 102 H 14 84/37 100 11/02/21 03:39 11/02/21 07:52 11/02/21 07:52 11/02/21 07:52 11/02/21 07:52 General appearance: Present: no acute distress, well-nourished - EENT Eyes: Present: PERRL, EOM intact - Neck Neck: Present: supple, normal ROM - Respiratory Respiratory effort: normal Respiratory: bilateral: diminished, negative: rales, rhonchi, wheezing - Cardiovascular Rhythm: regular Heart Sounds: Present: S1 & S2 - Extremities Extremities: no ischemia, No edema - Abdominal General gastrointestinal: soft, non-tender, non-distended, normal bowel sounds - Integumentary Integumentary: Present: clear, warm - Psychiatric Psychiatric: appropriate mood/affect, cooperative - Neurologic Neurologic: moves all extremities HEART Score - HEART Score Troponin: Troponin T 0.057 ng/mL (0.00-0.029) H 10/31/21 10:15 Results - Labs CBC & Chem 7: 11/02/21 06:54 11/02/21 06:54 Labs: Laboratory Last Values WBC 6.0 K/mm3 (4.5-11.0) 11/02/21 06:54 RBC 2.55 M/mm3 (3.65-5.03) L 11/02/21 06:54 Hgb 8.0 gm/dl (10.1-14.3) L 11/02/21 06:54 Hct 23.4 % (30.3-42.9) L 11/02/21 06:54 MCV 92 fl (79-97) 11/02/21 06:54 MCH 32 pg (28-32) 11/02/21 06:54 MCHC 34 % (30-34) 11/02/21 06:54 RDW 18.8 % (13.2-15.2) H 11/02/21 06:54 Plt Count 234 K/mm3 (140-440) 11/02/21 06:54 Lymph % (Auto) 29.1 % (13.4-35.0) 11/02/21 06:54 [place] % (Auto) 10.5 % (0.0-7.3) H 11/02/21 06:54 Eos % (Auto) 0.7 % (0.0-4.3) 11/02/21 06:54 Baso % (Auto) 1.1 % (0.0-1.8) 11/02/21 06:54 Lymph # (Auto) 1.8 K/mm3 (1.2-5.4) 11/02/21 06:54 [place] # (Auto) 0.6 K/mm3 (0.0-0.8) 11/02/21 06:54 Eos # (Auto) 0.0 K/mm3 (0.0-0.4) 11/02/21 06:54 Baso # (Auto) 0.1 K/mm3 (0.0-0.1) 11/02/21 06:54 Seg Neutrophils % 58.6 % (40.0-70.0) 11/02/21 06:54 Seg Neutrophils # 3.5 K/mm3 (1.8-7.7) 11/02/21 06:54 PT 16.7 Sec. (12.2-14.9) H 11/02/21 06:54 INR 1.21 (0.87-1.13) H 11/02/21 06:54 APTT 33.3 Sec. (24.2-36.6) 11/02/21 06:54 Sodium 139 mmol/L (137-145) 11/02/21 06:54 Potassium 3.8 mmol/L (3.6-5.0) 11/02/21 06:54 Chloride 104.7 mmol/L (98-107) 11/02/21 06:54 Carbon Dioxide 22 mmol/L (22-30) 11/02/21 06:54 Anion Gap 16 mmol/L 11/02/21 06:54 BUN 41 mg/dL (7-17) H 11/02/21 06:54 Creatinine 2.0 mg/dL (0.6-1.2) H 11/02/21 06:54 Estimated GFR 30 ml/min 11/02/21 06:54 BUN/Creatinine Ratio 21 % 11/02/21 06:54 Glucose 108 mg/dL (65-100) H 11/02/21 06:54 Lactic Acid 3.60 mmol/L (0.7-2.0) H* 11/01/21 20:07 Calcium 8.7 mg/dL (8.4-10.2) 11/02/21 06:54 Magnesium 2.30 mg/dL (1.7-2.3) 11/02/21 06:54 Total Bilirubin 2.00 mg/dL (0.1-1.2) H 11/01/21 07:17 AST 35 units/L (5-40) 11/01/21 07:17 ALT 13 units/L (7-56) 11/01/21 07:17 Alkaline Phosphatase 148 units/L (35-129) H 11/01/21 07:17 Ammonia 57.0 umol/L (25-60) 11/02/21 06:54 Troponin T 0.057 ng/mL (0.00-0.029) H 10/31/21 10:15 Total Protein 6.1 g/dL (6.3-8.2) L 11/01/21 07:17 Albumin 2.6 g/dL (3.9-5) L 11/01/21 07:17 Albumin/Globulin Ratio 0.7 % 11/01/21 07:17 Triglycerides 137 mg/dL (2-149) 10/31/21 10:15 Cholesterol 241 mg/dL (50-199) H 10/31/21 10:15 LDL Cholesterol Direct 152 mg/dL (50-130) H 10/31/21 10:15 HDL Cholesterol 42 mg/dL (40-59) 10/31/21 10:15 Cholesterol/HDL Ratio 5.73 % 10/31/21 10:15 Amylase 89 units/L (27-131) 11/02/21 06:54 Lipase 78 units/L (13-60) H 11/02/21 06:54 TSH 3.300 mlU/mL (0.270-4.200) 10/31/21 10:15 Urine Color Madhavi (Yellow) 10/31/21 17:48 Urine Turbidity Clear (Clear) 10/31/21 17:48 Urine pH 5.0 (5.0-7.0) 10/31/21 17:48 Ur Specific [place] 1.016 (1.003-1.030) 10/31/21 17:48 Urine Protein <15 mg/dl mg/dL (Negative) 10/31/21 17:48 Urine Glucose (UA) Neg mg/dL (Negative) 10/31/21 17:48 Urine Ketones Tr mg/dL (Negative) 10/31/21 17:48 Urine Blood Neg (Negative) 10/31/21 17:48 Urine Nitrite Neg (Negative) 10/31/21 17:48 Urine Bilirubin Neg (Negative) 10/31/21 17:48 Urine Urobilinogen 2.0 mg/dL (<2.0) 10/31/21 17:48 Ur Leukocyte Esterase Neg (Negative) 10/31/21 17:48 Urine WBC (Auto) 2.0 /HPF (0.0-6.0) 10/31/21 17:48 Urine RBC (Auto) 5.0 /HPF (0.0-6.0) 10/31/21 17:48 U Epithel Cells (Auto) 10.0 /HPF (0-13.0) 10/31/21 17:48 Urine Bacteria (Auto) 1+ /HPF (Negative) 10/31/21 17:48 Hyaline Casts 49 /LPF 10/31/21 17:48 Urine Mucus Few /HPF 10/31/21 17:48 Urine Opiates Screen Presumptive negative 10/31/21 17:48 Urine Methadone Screen Presumptive negative 10/31/21 17:48 Ur Barbiturates Screen Presumptive negative 10/31/21 17:48 Ur Phencyclidine Scrn Presumptive negative 10/31/21 17:48 Ur Amphetamines Screen Presumptive negative 10/31/21 17:48 U Benzodiazepines Scrn Presumptive negative 10/31/21 17:48 Urine Cocaine Screen Presumptive negative 10/31/21 17:48 U Marijuana (THC) Screen Presumptive negative 10/31/21 17:48 Drugs of Abuse Note Disclamer 10/31/21 17:48 Blood Type B POSITIVE 10/31/21 14:30 Antibody Screen Negative 10/31/21 14:30 Crossmatch See Detail 10/31/21 14:30 Castrejon/IV: Voiding Method External Female Catheter Active Medications - Current Medications Current Medications: Generic Name Dose Route Start Last Admin Trade Name Freq PRN Reason Stop Dose Admin Acetaminophen 650 mg 10/31/21 20:59 Acetaminophen 325 Mg Tab PO Q4H PRN Pain MILD(1-3)/Fever >100.5/FLORES Albumin Human 25 gm 11/01/21 12:00 11/02/21 01:03 Albumin Human 25% (25 Gm/100 Ml) Inj IV 25 gm Q12H AYO Administration Furosemide 20 mg 11/01/21 18:00 11/02/21 06:24 Furosemide 20 Mg/2 Ml Inj IV Not Given 0600,1800 [facility] Heparin Sodium (Porcine) 5,000 unit 11/01/21 22:00 11/01/21 21:57 Heparin 5,000 Unit/1 Ml Vial SUB-Q 5,000 unit Q12HR AYO Administration Hydrophilic Ointment 1 applic 11/01/21 07:00 11/01/21 09:47 Lip Therapy Vaseline TP 1 applic DIRECT PRN Administration Dry Lips Lactulose 20 gm 11/01/21 22:00 11/01/21 21:57 Lactulose 20 Gm/30 Ml Oral Liqd PO 20 gm BID AYO Administration Metoclopramide HCl 10 mg 10/31/21 20:59 Metoclopramide 10 Mg/2 Ml Inj IV Q6H PRN Nausea And Vomiting Morphine Sulfate 2 mg 10/31/21 20:59 Morphine 2 Mg/1 Ml Inj IV Q4H PRN Pain, Moderate (4-6) Ondansetron HCl 4 mg 10/31/21 21:01 Ondansetron 4 Mg/2 Ml Inj IV Q3H PRN Nausea And Vomiting Oxycodone/Acetaminophen 1 tab 10/31/21 11:28 Oxycodone /Acetaminophen 5-325mg Tab PO Q6H PRN Pain, Moderate (4-6) Sodium Chloride 10 ml 10/31/21 22:00 11/01/21 21:58 Sodium Chloride 0.9% 10 Ml Flush Syringe IV 10 ml BID AYO Administration Sodium Chloride 10 ml 10/31/21 20:59 Sodium Chloride 0.9% 10 Ml Flush Syringe IV PRN PRN LINE FLUSH Spironolactone 50 mg 10/31/21 22:00 11/01/21 22:06 Spironolactone 50 Mg Tab PO Not Given QDAY [facility] Nutrition/Malnutrition Assess - Dietary Evaluation Nutrition/Malnutrition Findings: Nutrition Notes Start: 11/01/21 15:21 Freq: Status: Active Protocol: Document 11/01/21 15:21 LUIS FERNANDO (Rec: 11/01/21 16:10 LUIS FERNANDO [id number]) Nutrition Notes Need for Assessment generated from: MD Order,bone density technician,MST Initial or Follow up Assessment Current Diagnosis Acute Kidney Injury,CKD(stage I-IV),Malnutrition Other Pertinent Diagnosis Hepatic Cirrhosis, CESAR/CKD, Ascites, Fall, Anemia. Current Diet Renal Diet (since B 11/01). Labs/Tests 11/01: BUN 45, Crea 2.2. Pertinent Medications 11/01: Nutritionally unremarkable. Height 5 ft 7 in Weight 67.6 kg [place] Body Weight (kg) 61.36 BMI 23.3 Intake Prior to Admission Poor Weight change and time frame Pt states having, unintentionally, loss between 24 to 33 lb recently. Pt's body weight on chart 79. 379 Kg, I will use instead 67. 6 Kg -from last visit- since it appears more accurate. Unable to reach RN over the phone, will reassess at F/U. Last visit on 10/18/21, Pt's Wt was 67.6 Kg; there is a discrepancy with Pt's statement, instead Pt gained 11.779 Kg (25.9 lb) Previous visit on 08/08/21, Pt 's Wt was 58 Kg, 9.4 Kg less. Weight Status Appropriate Subjective/Other Information RD consult for skin risk, risk of malnutrition and dietary supplementation assessments. No reports available on Pt's PO intake of meals at the time , will assess at F/U. I will recommend to keep the Renal Diet, since it supports better Pt's CESAR/CKD condition, and discontinue Cardiac Diet as well as Dietary Supplements , since they are not necessary at the time. Pt shows no signs of concern for risk of malnutrition at the time, according to Physical Assessment History notes. Pt is on Room Air, O23 saturation @ 100%, according to Physical Assessment History notes. Pt presens ascites, according to Physical Assessment History notes. Procedure on 11/01: US Paracentesis, well tolerated, according to Operative Report notes. Pt shows no signs of concern for skin risk at the time, according to Physical Assessment History notes. Percent of energy/protein needs met: Prescribed Renal Diet provides for energy/protein needs (2, 072 Kcal/77 g) during LOS. Burn Absent Trauma Absent GI Symptoms None Food Allergy No Skin Integrity/Comment Assessment WNL. Minimum of two criteria No #1 Nutrition Diagnosis Altered GI function Comments: Will assess Pt's PO intake of meals and the need for ONS at F/U. Etiology Hepatic Cirrhosis, CESAR/CKD. As Evidenced by Signs and Symptoms Ascites. Is patient on ventilator? No Is Patient Ambulatory and/or Out of Bed No REE-([facility]-confined to bed) 1503.876 Kcal/Kg value to use for calculation 26 Approximate Energy Requirements Using 1758 kcal/Kg Calculation Used for Recommendations Kcal/kg Additional Notes Protein: 0.6-0.8 g/Kg ABW; 41- 54 g/day. Fluids: 1 ml/Kcal, or as per MD. Nutrition Intervention Change Diet Order: Continue Renal Diet. Discontinue Cardiac Diet. Add Supplement/Snack (indicate name/kcal Discontinue D. Suppl. /protein ) Goal #1 Adjust the dietary intervention to better serve Pt's needs and clinical conditions during LOS. Goal #2 Maintain body weight within +/ -3% of admission body weight during LOS. Follow-Up By: 11/08/21 Additional Comments Continue monitoring food tolerance, %PO intake of meals , and BM.
--- NOTE | 2021-11-02 09:31 | Electrocardiograph Report ---
[facility] Test Date: 2021-10-31 Test Time: 08:54:57 Pat Name: DONG MCDOWELL Department: Room: A486 1 Gender: F [employer] Cook: CHARLIE : 1955 Requested By: KARSTEN MORFIN Order Number: [id number] Reading MD: Fan Mai Measurements Intervals [place] Rate: 103 P: 56 [place]: 157 QRS: 30 QRSD: 78 T: 87 QT: 390 QTc: 510 Interpretive Statements Sinus tachycardia Atrial premature complex Low voltage, precordial leads Prolonged QT interval Compared to ECG 10/11/2021 20:30:13 Atrial premature complex(es) now present Electronically Signed On 11-02-2021 9:31:12 EDT by Fan Mai
[2021-11-02] MEDS: LACTULOSE 20 GM/30 ML ORAL LIQD PO SCH (11:00)
[2021-11-02] MEDS: SPIRONOLACTONE 50 MG TAB PO SCH (11:00)
[2021-11-02] MEDS: HEPARIN 5,000 UNIT/1 ML VIAL SUB-Q SCH (11:00)
--- NOTE | 2021-11-02 12:07 | Progress Note ---
Assessment and Plan Impression: * CESAR on ckd 4/5--cr 2.9 in September 2021 * hepatorenal sydrome vs volume depletion and ATN * hypotension * Cirrhosis * Metabolic acidosis * Hyperkalemia * anemia of chronic disease--symptomatic * etoh abuse Plan: * no indication for shell sorter * IV lasix and albumin for diuresis * paracentesis prn, albumin with any planned large volume paracentesis * cr is stable since last admission * avoid nephrotoxins * Keep MAP >65 * daily lytes and strict i/os * PRN PRBCs * renal diet * serial hb/hct, prn PRBCs Subjective Date of service: 11/02/21 Interval history: chart and labs reviewed events noted Objective - Exam Narrative Exam: - General Limitations: No Limitations General appearance: alert, in no apparent distress - Head Head exam: Present: normal inspection - Eye Eye exam: Present: normal appearance Pupils: Present: normal accommodation - ENT ENT exam: Present: normal exam, normal orophraynx, mucous membranes moist - Neck Neck exam: Present: normal inspection, full ROM. Absent: tenderness - Respiratory Respiratory exam: Present: normal lung sounds bilaterally. Absent: respiratory distress, chest wall tenderness - Cardiovascular Cardiovascular Exam: Present: regular rate, normal rhythm, normal heart sounds - GI/Abdominal GI/Abdominal exam: Present: distended, tenderness (With very mild diffuse tenderness to palpation), hypoactive bowel sounds. Absent: guarding, rebound - Extremities Exam Extremities exam: Present: pedal edema (Bilateral 2+ pitting edema) - Back Exam Back exam: Absent: tenderness - Neurological Exam Neurological exam: Present: alert, oriented X3 - Psychiatric Psychiatric exam: Present: normal affect, normal mood - Skin Skin exam: Present: warm, cyanosis - Vital Signs Vital signs: Vital Signs - 12hr 11/02/21 11/02/21 11/02/21 03:39 07:52 11:38 Temperature 97.4 F L Pulse Rate 101 H 102 H Respiratory 16 14 14 Rate Blood Pressure 90/57 84/37 88/51 O2 Sat by Pulse 100 100 Oximetry 11/02/21 11:39 Temperature Pulse Rate 81 Respiratory 14 Rate Blood Pressure O2 Sat by Pulse 93 Oximetry - Lab 11/02/21 06:54 11/02/21 06:54 Most recent lab results Calcium 8.7 mg/dL (8.4-10.2) 11/02/21 06:54 Magnesium 2.30 mg/dL (1.7-2.3) 11/02/21 06:54 Medications & Allergies - Medications Allergies/Adverse Reactions: Allergies codeine Adverse Reaction (Verified 10/11/21 20:47) Unknown hallucinates morphine Adverse Reaction (Verified 10/11/21 20:47) Hives Home Medications: Home Medications Medication Instructions Recorded Confirmed Last Taken Type Furosemide [Lasix TAB] 20 mg PO QDAY #30 tablet 08/02/21 10/12/21 10/12/21 09:00 Rx Lactulose [Cephulac] 20 gm PO BID #100 oral.liqd 08/02/21 10/12/21 Unknown Rx Pantoprazole [Protonix TAB] 40 mg PO BID #60 tablet 08/02/21 10/12/21 10/09/21 17:00 Rx Pantoprazole [Protonix TAB] 40 mg PO BIDAC 30 Days #60 tablet 10/15/21 Unknown Rx Active Medications: Generic Name Dose Route Start Last Admin Trade Name Freq PRN Reason Stop Dose Admin Acetaminophen 650 mg 10/31/21 20:59 Acetaminophen 325 Mg Tab PO Q4H PRN Pain MILD(1-3)/Fever >100.5/FLORES Albumin Human 25 gm 11/01/21 12:00 11/02/21 01:03 Albumin Human 25% (25 Gm/100 Ml) Inj IV 25 gm Q12H AYO Administration Furosemide 20 mg 11/01/21 18:00 11/02/21 06:24 Furosemide 20 Mg/2 Ml Inj IV Not Given 0600,1800 AYO Heparin Sodium (Porcine) 5,000 unit 11/01/21 22:00 11/02/21 11:00 Heparin 5,000 Unit/1 Ml Vial SUB-Q 5,000 unit Q12HR AYO Administration Hydrophilic Ointment 1 applic 11/01/21 07:00 11/01/21 09:47 Lip Therapy Vaseline TP 1 applic DIRECT PRN Administration Dry Lips Lactulose 20 gm 11/01/21 22:00 11/02/21 11:00 Lactulose 20 Gm/30 Ml Oral Liqd PO 20 gm BID AYO Administration Metoclopramide HCl 10 mg 10/31/21 20:59 Metoclopramide 10 Mg/2 Ml Inj IV Q6H PRN Nausea And Vomiting Morphine Sulfate 2 mg 10/31/21 20:59 Morphine 2 Mg/1 Ml Inj IV Q4H PRN Pain, Moderate (4-6) Ondansetron HCl 4 mg 10/31/21 21:01 Ondansetron 4 Mg/2 Ml Inj IV Q3H PRN Nausea And Vomiting Oxycodone/Acetaminophen 1 tab 10/31/21 11:28 Oxycodone /Acetaminophen 5-325mg Tab PO Q6H PRN Pain, Moderate (4-6) Sodium Chloride 10 ml 10/31/21 22:00 11/02/21 11:15 Sodium Chloride 0.9% 10 Ml Flush Syringe IV 10 ml BID AYO Administration Sodium Chloride 10 ml 10/31/21 20:59 Sodium Chloride 0.9% 10 Ml Flush Syringe IV PRN PRN LINE FLUSH Spironolactone 50 mg 10/31/21 22:00 11/02/21 11:00 Spironolactone 50 Mg Tab PO 50 mg QDAY AYO Administration
--- NOTE | 2021-11-02 17:41 | Event Note ---
Date: 11/02/21 Patient wanted to leave the hospital, patient is hypotensive shortness of breath, acute kidney injury, massive ascites status post abdominal paracentesis and removal of 8 L of peritoneal fluid, patient is hypotensive, on fluid boluses, amiodarone was started, I called the next of kin Ms. Rey Sandoval and informed patient's condition, I advised her to talk to the patient and convince her to stay or come and pick her up as patient wants to leave AGAINST MEDICAL ADVICE. Initially Ms. Sandoval refused saying patient is not ready to go home, she always leaves the hospital before she gets better and fall sick immediately at home. However patient was adamant and left the floor. I called Ms. Sandoval again and informed her to come immediately and pick her up as it is not safe for the patient to leave the hospital alone . She agreed to come and take the patient home. I informed patient's nurse Ms. Ayala, charge nurse Ms. Barber. I advised them to call security if needed for patient safety.
--- NOTE | 2021-11-02 17:44 | Discharge Summary ---
Providers - Providers Date of Admission: 10/31/21 11:31 Date of discharge: 11/02/21 Attending physician: KARSTEN MORFIN 10/31/21 21:17 Consult to Physician [CONS] Routine Comment: Consulting Provider: MYNOR JIMENES Physician Instructions: Reason For Exam: Tai/ckd 11/01/21 19:20 Consult to Dietitian/Nutrition [CONS] Routine Physician Instructions: Reason For Exam: Reason for Consult: Malnutrition Primary care physician: [employer] Hospitalization Reason for admission: Generalized weakness/fall/anemia/ascites Condition: Stable Procedures: Ultrasound-guided abdominal paracentesis and removal of more than 8 L of peritoneal fluid Hospital course: Severe weakness. Since a.m. Unable to get up after the fall 66-year-old female with a history of liver cirrhosis with ascites and recent diagnosis of kidney failure who now presents with generalized weakness after a fall this morning and she could not get up. According to patient she was living with a friend who witnessed the fall when she tripped on one of her bag strap and could not get up by herself. Pt also reports that she usually unable to get up from low stool anyway. ED course: Patient has hemoglobin of 6.2 and severe ascites---hence admission for blood transfusion and paracentesis Patient received 2 units of PRBC blood transfusion with significant improvement of hemoglobin underwent ultrasound, guided abdominal paracentesis and removal of more than 8000 mL of peritoneal fluid, today patient was slightly hypotensive received some fluid boluses and started on midodrine. Today however patient is anxious to go home, wanted to leave the hospital I informed her that patient is sick with hypotension and acute kidney injury. And is very weak to leave the hospital, advised to asked the family to come and pick her up AGAINST MEDICAL ADVICE. I called next of kin/immediate contact Ms. Rey Sandoval, initially she refused to come to pick her up as she is not well to come home, however after calling the second time, saying that patient is insisting on leaving AGAINST MEDICAL ADVICE, Ms. Lori Le decided to come and pick her up Patient left AMA. Patient's nurse, charge nurse and nursing supervisor network control operators are informed. Final diagnosis; -- Symptomatic anemia Patient received 1 unit of PRBC transfusion Hb improved from 6.2-6.9 Transfuse second unit of PRBC and check H&H Stool is guaiac negative Probably nutritional -- TAI (acute kidney injury)Vasomotor nephropathy Nephrology following following Patient on Lasix which may be contributing Mild improvement, creatinine improved from 2.4-2.2 Gentle hydration follow renal recommendations -- Ascites s/p Ultrasound-guided paracentesis and removal of 8200 mL of clear peritoneal fluid Fluid not sent for analysis Patient tolerated the procedure well -- Hypotension Blood pressures in the lower range Hold antihypertensives, closely monitor Fluid bolus as needed, midodrine 5 mg 3 times a day Closely monitor -- lactic acidosis Etiology unclear No signs of infection No antibiotics were started Closely monitor --Transaminitis Secondary to cirrhosis Hepatitis profile Consider GI evaluation if needed --severe protein calorie malnutrition Nutrition supplements Supportive care. Nutrition consult --Severe hypoalbuminemia; albumin 2.8 Nutrition supplements, supportive care, nutrition consult --DVT prophylaxis On anticoagulation GI prophylaxis --Advance care planning Disease education collected, care plan discussed, diagnosis discussed, prognosis discussed. Patient is full code. Patient acknowledges understanding and agreement with care plan. +30 minutes. Will closely monitor the patient and adjust management as needed Plan of care reviewed with the patient and her nurse Patient wants to leave the hospital I called next of kin 11/03/2019; Ms. Rey Sandoval at [phone] and discussed in detail patient's condition, tests and reports, treatment plan, patient's overall general condition with Ms. Sandoval and also informed her that Ms. Walter wants to leave the hospital, Ms. Sandoval informed that she left hospital early during last admission and she felt sick immediately, and she refused to take her out AMA, and said she will talk to the patient and convince her. I informed patient's nurse and the patient of my conversation with Ms. Rey Sandoval I called Ms. Sandoval again and informed her to come immediately and pick her up as it is not safe for the patient to leave the hospital alone . She agreed to come and take the patient home. I informed patient's nurse Ms. Ayala, charge nurse Ms. Barber. I advised them to call security if needed for patient safety. Patient left AGAINST MEDICAL ADVICE Hip and pelvis x-ray; no acute findings open dictation Disposition: LEFT AGAINST MEDICAL ADVICE Final Discharge Diagnosis (Prints w/discharge instructions): Symptomatic anemia. s/p blood transfusion. Acute kidney injury/vasomotor nephropathy. Ascites;s/p removal of more than 8 L of peritoneal fluid. Hypotension. Lactic acidosis. Transaminitis. Severe protein calorie malnutrition. Severe hypoalbuminemia albumin 2.8 Time spent for discharge: 40 minutes Core Measure Documentation - Palliative Care Palliative Care/ Comfort Measures: Not Applicable - Core Measures Any of the following diagnoses?: none Exam - Constitutional Vitals: Temp Pulse Resp BP Pulse Ox 97.4 F L 81 14 88/51 93 11/02/21 03:39 11/02/21 11:39 11/02/21 11:39 11/02/21 11:38 11/02/21 11:39 General appearance: Present: mild distress, well-nourished - EENT Eyes: Present: PERRL, EOM intact - Neck Neck: Present: supple, normal ROM - Respiratory Respiratory effort: normal Respiratory: bilateral: diminished, negative: rales, rhonchi, wheezing - Cardiovascular Rhythm: regular Heart Sounds: Present: S1 & S2 - Extremities Extremities: no ischemia, No edema - Abdominal General gastrointestinal: Present: soft, non-tender, distended (Ascites), normal bowel sounds - Integumentary Integumentary: Present: clear, warm - Musculoskeletal Musculoskeletal: strength equal bilaterally, generalized weakness - Psychiatric Psychiatric: agitated - Neurologic Neurologic: moves all extremities Plan Activity: advance as tolerated, fall precautions Diet: other (Cardiac diet) Additional Instructions: Patient left AGAINST MEDICAL ADVICE Follow up with: PRIMARY CARE, [Primary Care Provider] - 3-5 Days Forms: AMA Form
[2021-11-02] MEDS ORDERED: MIDODRINE 5 MG TAB PO SCH (18:00)
[2021-11-02 18:36] VITALS: BP 86/48
== END 2021-11-02 19:00 | disposition left against medical advice (07) | DRG 432 ==
LOC: ED 21:28 → 4A 10-31 11:31
PROVIDERS: ADMIT Internal Medicine; ATTEND Internal Medicine
PROC: 30233N1 Transfusion of Nonautologous Red Blood Cells into Peripheral Vein, Percutaneous Approach (ICD-10-PCS; principal; 2021-10-31)
PROC: 0W9G3ZZ Drainage of Peritoneal Cavity, Percutaneous Approach (ICD-10-PCS; 2021-11-01)
DX: K70.31 Alcoholic cirrhosis of liver with ascites (principal); N17.0 Acute kidney failure with tubular necrosis; E43 Unspecified severe protein-calorie malnutrition; E87.2 Acidosis; N18.5 Chronic kidney disease, stage 5; I12.0 Hypertensive chronic kidney disease with stage 5 chronic kidney disease or end stage renal disease; D64.9 Anemia, unspecified; M62.81 Muscle weakness (generalized); Z88.6 Allergy status to analgesic agent; Z88.5 Allergy status to narcotic agent; Z53.29 Procedure and treatment not carried out because of patient's decision for other reasons; E78.00 Pure hypercholesterolemia, unspecified; Z90.49 Acquired absence of other specified parts of digestive tract; F10.10 Alcohol abuse, uncomplicated; Y90.9 Presence of alcohol in blood, level not specified; E87.5 Hyperkalemia; I95.9 Hypotension, unspecified
CPT/HCPCS: 36415; 49083; 73521; 80048; 80053; 80061; 80307; 81001; 82140; 82150; 83690; 83735; 84443; 84484; 85014; 85018; 85025; 85610; 85730; 86850; 86900; 86901; 86920; 87641; 93005; G0378; J1644; J1940; J7030; J7040; P9016; P9047

== ENCOUNTER 2021-12-24 14:13 | Emergency (ER) | payer MEDICARE ==
[2021-12-24 21:04] LABS: Basophils # (Auto) 0.2 K/mm3 (0.0-0.1); Basophils % (Auto) 2.9 % (0.0-1.8); Eosinophils # (Auto) 0.2 K/mm3 (0.0-0.4); Eosinophils % (Auto) 2.3 % (0.0-4.3); Hematocrit 24.2 % (30.3-42.9); Hemoglobin 7.8 gm/dl (10.1-14.3); Lymphocytes % (Auto) 14.5 % (13.4-35.0); Mean Corpuscular HGB Conc 32 % (30-34); Mean Corpuscular Volume 98 fl (79-97); Monocytes # (Auto) 0.5 K/mm3 (0.0-0.8); Monocytes % (Auto) 7.7 % (0.0-7.3); Platelet Count 255 K/mm3 (140-440); Red Blood Count 2.49 M/mm3 (3.65-5.03); Red Cell Distribution Width 18.8 % (13.2-15.2)
[2021-12-24 21:16] LABS: Albumin 3.3 g/dL (3.9-5); Bilirubin,Direct 0.4 mg/dL (0-0.2)
--- NOTE | 2021-12-25 04:02 | Cat Scan Report ---
CT ABDOMEN AND PELVIS WITHOUT CONTRAST INDICATION / CLINICAL INFORMATION: ascites. TECHNIQUE: Axial CT images were obtained through the abdomen and pelvis without IV contrast. All CT scans at this location are performed using CT dose reduction for ALARA by means of automated exposure control. COMPARISON: 10/11/2021 FINDINGS: LOWER CHEST: No significant abnormality. LIVER: Cirrhotic configuration unchanged. GALLBLADDER: Gallstones. BILE DUCTS: No significant abnormality. PANCREAS: No significant abnormality. SPLEEN: No significant abnormality. ADRENALS: No significant abnormality. RIGHT KIDNEY / URETER: No significant abnormality. LEFT KIDNEY / URETER: No significant abnormality. STOMACH / SMALL BOWEL: No significant abnormality. COLON: No significant abnormality. APPENDIX: Nonvisualized. PERITONEUM: Large volume ascites again noted. No free air. No fluid collection. LYMPH NODES: No significant adenopathy. VASCULAR STRUCTURES: No significant abnormality. URINARY BLADDER: No significant abnormality. REPRODUCTIVE ORGANS: No significant abnormality. ADDITIONAL FINDINGS: Soft tissue anasarca is noted. SKELETAL SYSTEM: No significant abnormality. IMPRESSION: 1. Cirrhosis with large volume ascites remains. 2. Calcified gallstones. 3. Soft tissue anasarca. Signer Name: Alvaro Watt MD Signed: 12/25/2021 3:57 AM Workstation Name: [id number]
--- NOTE | 2021-12-25 11:07 | Procedure Note ---
Date of procedure: 12/25/21 Pre-op diagnosis: ascites,cirrhosis Post-op diagnosis: same Procedure: US paracentesis Findings: large ascites Anesthesia: local Surgeon: KYLE SALDANA Estimated blood loss: none Pathology: none Specimen disposition: discarded Condition: stable Disposition: other (back to ER)
--- NOTE | 2021-12-25 11:12 | Ultrasound Report ---
ULTRASOUND-GUIDED PARACENTESIS HISTORY: abd distension. PROCEDURE: The risks (including but not limited to bleeding, infection, and bowel injury) and benefi ts were explained to the patient and informed consent was obtained. A time out procedure was perform ed. Ultrasound was used to evaluate the abdomen and locate the largest ascites fluid pocket. Once the sk in was marked, the procedure site was prepped and draped in the usual sterile fashion and lidocaine w as used for local anesthesia. A 5 [place] centesis catheter was placed. The patient was monitored cl osely throughout the procedure, and a total of 6100 mL of clear yellow fluid was aspirated. No labs were ordered. The patient tolerated the procedure well with no complications. IMPRESSION: Successful ultrasound-guided paracentesis as described. Signer Name: Enrrique Godoy Jr, MD Signed: 12/25/2021 11:07 AM Workstation Name: [id number]
--- NOTE | 2021-12-25 11:17 | Emergency Department Report ---
ED General Adult HPI - General Chief complaint: Abdominal Pain Stated complaint: WANTS FLUID DRAINED FROM ABDOMEN Time Seen by Provider: 12/25/21 07:00 Source: patient, EMS Mode of arrival: Stretcher Limitations: No Limitations - History of Present Illness Initial comments: Patient presents with abdominal pain that is been going on for 1 week. Patient states that she has abdominal distention and that she needs fluid taken out from her abdomen. The pain is moderate she states that she has a history of alcoholic cirrhosis and that she usually gets her abdomen drained every 2 weeks she has no fever no nausea no vomiting no diarrhea and no bruising. Severity scale (0 -10): 0 - Related Data Previous Rx's Medication Instructions Recorded Last Taken Type Furosemide [Lasix TAB] 20 mg PO QDAY #30 tablet 08/02/21 10/12/21 09:00 Rx Lactulose [Cephulac] 20 gm PO BID #100 oral.liqd 08/02/21 Unknown Rx Pantoprazole [Protonix TAB] 40 mg PO BID #60 tablet 08/02/21 10/09/21 17:00 Rx Pantoprazole [Protonix TAB] 40 mg PO BIDAC 30 Days #60 tablet 10/15/21 Unknown Rx Allergies Allergy/AdvReac Type Severity Reaction Status Date / Time codeine AdvReac Unknown Verified 12/24/21 15:11 morphine AdvReac Hives Verified 12/24/21 15:11 ED Review of Systems ROS: Stated complaint: WANTS FLUID DRAINED FROM ABDOMEN Other details as noted in HPI Constitutional: denies: chills, fever Eyes: denies: eye pain, eye discharge, vision change ENT: denies: ear pain, throat pain Respiratory: denies: cough, shortness of breath, wheezing Cardiovascular: denies: chest pain, palpitations Endocrine: no symptoms reported Gastrointestinal: abdominal pain. denies: nausea, diarrhea Genitourinary: denies: urgency, dysuria, discharge Musculoskeletal: denies: back pain, joint swelling, arthralgia Skin: denies: rash, lesions Neurological: denies: headache, weakness, paresthesias Psychiatric: denies: anxiety, depression Hematological/Lymphatic: denies: easy bleeding, easy bruising ED Past Medical Hx - Past Medical History Hx Hypertension: Yes Hx Heart Attack/AMI: No Hx Liver Disease: Yes (2/2 EtOH) Hx Renal Disease: No Hx HIV: No Additional medical history: high cholesterol - Surgical History Hx Appendectomy: Yes Additional Surgical History: knee surgery, appendectomy - Social History Smoking Status: Former Smoker - Medications Home Medications: Home Medications Medication Instructions Recorded Confirmed Last Taken Type Furosemide [Lasix TAB] 20 mg PO QDAY #30 tablet 08/02/21 10/12/21 10/12/21 09:00 Rx Lactulose [Cephulac] 20 gm PO BID #100 oral.liqd 08/02/21 10/12/21 Unknown Rx Pantoprazole [Protonix TAB] 40 mg PO BID #60 tablet 08/02/21 10/12/21 10/09/21 17:00 Rx Pantoprazole [Protonix TAB] 40 mg PO BIDAC 30 Days #60 tablet 10/15/21 Unknown Rx ED Physical Exam - General Limitations: No Limitations General appearance: alert, in no apparent distress - Head Head exam: Present: atraumatic, normocephalic - Eye Eye exam: Present: normal appearance - ENT ENT exam: Present: mucous membranes moist - Neck Neck exam: Present: normal inspection - Respiratory Respiratory exam: Present: normal lung sounds bilaterally. Absent: respiratory distress - Cardiovascular Cardiovascular Exam: Present: regular rate, normal rhythm. Absent: systolic murmur, diastolic murmur, rubs, gallop - GI/Abdominal GI/Abdominal exam: Present: distended, rigid, normal bowel sounds - Extremities Exam Extremities exam: Present: normal inspection - Back Exam Back exam: Present: normal inspection - Neurological Exam Neurological exam: Present: alert, oriented X3 - Psychiatric Psychiatric exam: Present: normal affect, normal mood - Skin Skin exam: Present: warm, dry, intact, normal color. Absent: rash ED Course Vital Signs 12/24/21 15:07 Temperature 98.5 F Pulse Rate 99 H Respiratory 18 Rate Blood Pressure 110/68 [Left] O2 Sat by Pulse 100 Oximetry - Reevaluation(s) Reevaluation #1: 12/25/21 11:34 Patient had large-volume paracentesis and is feeling better I will discharge patient home with follow-up instructions to follow-up with the rental manager additional verbal discharge instructions were given ED Medical Decision Making - Lab Data Result diagrams: 12/24/21 20:41 Lab Results 12/24/21 12/24/21 12/24/21 Range/Units 20:41 20:41 20:41 WBC 6.9 (4.5-11.0) K/mm3 RBC 2.49 L (3.65-5.03) M/mm3 Hgb 7.8 L (10.1-14.3) gm/dl Hct 24.2 L (30.3-42.9) % MCV 98 H (79-97) fl MCH 32 (28-32) pg MCHC 32 (30-34) % RDW 18.8 H (13.2-15.2) % Plt Count 255 (140-440) K/mm3 Lymph % (Auto) 14.5 (13.4-35.0) % [place] % (Auto) 7.7 H (0.0-7.3) % Eos % (Auto) 2.3 (0.0-4.3) % Baso % (Auto) 2.9 H (0.0-1.8) % Lymph # (Auto) 1.0 L (1.2-5.4) K/mm3 [place] # (Auto) 0.5 (0.0-0.8) K/mm3 Eos # (Auto) 0.2 (0.0-0.4) K/mm3 Baso # (Auto) 0.2 H (0.0-0.1) K/mm3 Seg Neutrophils % 72.6 H (40.0-70.0) % Seg Neutrophils # 5.0 (1.8-7.7) K/mm3 PT 14.3 (12.2-14.9) Sec. INR 1.00 (0.87-1.13) Total Bilirubin 0.70 (0.1-1.2) mg/dL Direct Bilirubin 0.4 H (0-0.2) mg/dL Indirect Bilirubin 0.3 mg/dL AST 51 H (5-40) units/L ALT 19 (7-56) units/L Alkaline Phosphatase 209 H (35-129) units/L Total Protein 6.4 (6.3-8.2) g/dL Albumin 3.3 L (3.9-5) g/dL Albumin/Globulin Ratio 1.1 % Lipase 70 H (13-60) units/L - Radiology Data Radiology results: report reviewed, image reviewed CT abdomen: Shows no obstruction shows large volume ascites - Medical Decision Making Chief medical diagnosis: Large volume ascites Differential medical diagnosis: Abdominal obstruction, electrolyte abnormality I will get CT scan blood work ultrasound paracentesis and I will reevaluate the patient and discharge patient home Critical care attestation.: If time is entered above; I have spent that time in minutes in the direct care of this critically ill patient, excluding procedure time. ED Disposition Clinical Impression: Ascites Qualifiers: Ascites type: due to alcoholic cirrhosis Qualified Code(s): K70.31 - Alcoholic cirrhosis of liver with ascites Disposition: HOME / SELF CARE / HOMELESS Is pt being admited?: No Does the pt Need Aspirin: No Condition: Stable Instructions: Paracentesis, Care After, Ascites, Abdominal Pain (ED) Referrals: MOHINI NYE MD [Primary Care Provider] - 3-5 Days
[2021-12-25 11:53] VITALS: BP 126/84
== END 2021-12-25 11:20 | disposition home or self-care (01) ==
LOC: ED 14:13
DX: R18.8 Other ascites (principal); I10 Essential (primary) hypertension; K76.9 Liver disease, unspecified; Z87.891 Personal history of nicotine dependence; Z91.09 Other allergy status, other than to drugs and biological substances; Z79.899 Other long term (current) drug therapy
CPT/HCPCS: 36415; 49083; 74176; 80076; 83690; 85025; 85610; 99284

== ENCOUNTER 2022-03-03 06:36 | Emergency (ER) | payer MEDICARE ==
[2022-03-03 07:25] VITALS: BP 110/69
--- NOTE | 2022-03-03 08:15 | Emergency Department Report ---
ED ENT HPI - General Chief complaint: Nosebleed Stated complaint: NOSE BLEED Time Seen by Provider: 03/03/22 07:52 Source: patient Mode of arrival: Stretcher Limitations: No Limitations - History of Present Illness Initial comments: 66-year-old female with a history of hypercholesterolemia, kidney disease, and liver cirrhosis with recurrent ascites presents to the emergency department with epistaxis for the last 2 days, intermittently. Patient is not currently bleeding. Patient does not have any facial pain, lightheadedness, or dizziness. Patient states she was bleeding from both nostrils, and feels as if she has clots of both nares. Patient is also complaining of abdominal pain secondary to reaccumulation of her ascites, but she has an appointment to be seen on Friday in regards to that. Patient does not have shortness of breath. Patient states that her last paracentesis was 3 weeks ago, and they were able to draw off 10 L. Additionally, patient complains of neuropathic pain to bilateral legs, which she was told was secondary to the edema that accumulates there. Lastly, patient states that she needs a refill for all of her medications except for spironolactone. - Related Data Previous Rx's Medication Instructions Recorded Last Taken Type Furosemide [Lasix TAB] 20 mg PO QDAY #30 tablet 08/02/21 10/12/21 09:00 Rx Lactulose [Cephulac] 20 gm PO BID #100 oral.liqd 08/02/21 Unknown Rx Pantoprazole [Protonix TAB] 40 mg PO BIDAC 30 Days #60 tablet 10/15/21 Unknown Rx Furosemide [Lasix] 40 mg PO DAILY 30 Days #30 03/03/22 Unknown Rx HYDROcodone/APAP 5-325 [[place] 1 each PO Q6HR PRN #12 tablet 03/03/22 Unknown Rx 5/325] Pantoprazole [Protonix TAB] 40 mg PO BID #60 tablet 03/03/22 Unknown Rx Allergies Allergy/AdvReac Type Severity Reaction Status Date / Time codeine AdvReac Unknown Verified 12/24/21 15:11 morphine AdvReac Hives Verified 12/24/21 15:11 ED Dental HPI - General Chief complaint: Nosebleed Stated complaint: NOSE BLEED Time Seen by Provider: 03/03/22 07:52 Source: patient Mode of arrival: Stretcher Limitations: No Limitations - History of Present Illness MD complaint: tooth pain Worsens with: chewing, hot/cold liquids Context- Dental: history of dental caries, poor dental care - Related Data Previous Rx's Medication Instructions Recorded Last Taken Type Furosemide [Lasix TAB] 20 mg PO QDAY #30 tablet 08/02/21 10/12/21 09:00 Rx Lactulose [Cephulac] 20 gm PO BID #100 oral.liqd 08/02/21 Unknown Rx Pantoprazole [Protonix TAB] 40 mg PO BIDAC 30 Days #60 tablet 10/15/21 Unknown Rx Furosemide [Lasix] 40 mg PO DAILY 30 Days #30 03/03/22 Unknown Rx HYDROcodone/APAP 5-325 [[place] 1 each PO Q6HR PRN #12 tablet 03/03/22 Unknown Rx 5/325] Pantoprazole [Protonix TAB] 40 mg PO BID #60 tablet 03/03/22 Unknown Rx Allergies Allergy/AdvReac Type Severity Reaction Status Date / Time codeine AdvReac Unknown Verified 12/24/21 15:11 morphine AdvReac Hives Verified 12/24/21 15:11 ED Review of Systems ROS: Stated complaint: NOSE BLEED Other details as noted in HPI Comment: All other systems reviewed and negative Constitutional: denies: chills, fever Eyes: denies: eye pain, eye discharge, vision change ENT: epistaxis. denies: ear pain, throat pain Respiratory: denies: cough, shortness of breath, wheezing Cardiovascular: denies: chest pain, palpitations Endocrine: no symptoms reported Gastrointestinal: abdominal pain, other (Distention). denies: nausea, diarrhea Genitourinary: denies: urgency, dysuria, frequency, discharge Musculoskeletal: myalgia. denies: back pain, joint swelling, arthralgia Skin: denies: rash, lesions Neurological: denies: headache, weakness, paresthesias Psychiatric: denies: anxiety, depression Hematological/Lymphatic: denies: easy bleeding, easy bruising ED Past Medical Hx - Past Medical History Previous Medical History?: Yes Hx Hypertension: Yes Hx Heart Attack/AMI: No Hx Liver Disease: Yes (2/2 EtOH) Hx Renal Disease: No Hx HIV: No Additional medical history: high cholesterol. Ascites. Paracenthesis. Kidney disease - Surgical History Past Surgical History?: Yes Hx Appendectomy: Yes Additional Surgical History: knee surgery, hysterectomy - Social History Smoking Status: Former Smoker - Medications Home Medications: Home Medications Medication Instructions Recorded Confirmed Last Taken Type Furosemide [Lasix TAB] 20 mg PO QDAY #30 tablet 08/02/21 10/12/21 10/12/21 09:00 Rx Lactulose [Cephulac] 20 gm PO BID #100 oral.liqd 08/02/21 10/12/21 Unknown Rx Pantoprazole [Protonix TAB] 40 mg PO BIDAC 30 Days #60 tablet 10/15/21 Unknown Rx Furosemide [Lasix] 40 mg PO DAILY 30 Days #30 03/03/22 Unknown Rx HYDROcodone/APAP 5-325 [[place] 1 each PO Q6HR PRN #12 tablet 03/03/22 Unknown Rx 5/325] Pantoprazole [Protonix TAB] 40 mg PO BID #60 tablet 03/03/22 Unknown Rx ED Physical Exam - General Limitations: No Limitations General appearance: alert, in no apparent distress - Head Head exam: Present: atraumatic, normocephalic - Eye Eye exam: Present: normal appearance, PERRL, EOMI - ENT ENT exam: Present: normal orophraynx (Minimal amount of dried blood), mucous membranes moist, other (Dried blood in bilateral nares, no active bleeding) - Neck Neck exam: Present: normal inspection, full ROM - Respiratory Respiratory exam: Present: normal lung sounds bilaterally. Absent: respiratory distress, wheezes, rales - Cardiovascular Cardiovascular Exam: Present: regular rate, normal rhythm. Absent: systolic murmur, diastolic murmur, rubs, gallop - GI/Abdominal GI/Abdominal exam: Present: soft, distended (Large amount of ascites palpated), tenderness (Mild upper abdominal tenderness), normal bowel sounds. Absent: bruit, pulsatile mass - Extremities Exam Extremities exam: Present: normal inspection - Back Exam Back exam: Present: normal inspection - Neurological Exam Neurological exam: Present: alert, oriented X3 - Psychiatric Psychiatric exam: Present: normal affect, normal mood - Skin Skin exam: Present: warm, dry, intact, normal color. Absent: rash ED Course Vital Signs 03/03/22 06:36 Temperature 97.4 F L Pulse Rate 109 H Respiratory 18 Rate Blood Pressure 110/69 O2 Sat by Pulse 98 Oximetry ED Medical Decision Making - Medical Decision Making This is a 66-year-old female with history of liver failure, ascites requiring regular paracentesis, and recurrent nosebleeds presents to the emergency department complaining of epistaxis for 2 days (resolved now), chronic upper abdominal pain which is not resolved with tramadol, and bilateral lower extremity paresthesias. Her vital signs were remarkable for tachycardia, and physical exam was remarkable for dried blood in the EENT exam, as well as significant ascites with mild upper abdominal tenderness. All of these appear to be chronic, and patient will be discharged home with pain medication, refills on her Lasix and Protonix, and will follow-up with her doctors as scheduled on Friday and Friday of this week. Critical care attestation.: If time is entered above; I have spent that time in minutes in the direct care of this critically ill patient, excluding procedure time. ED Disposition Clinical Impression: Epistaxis Ascites Qualifiers: Ascites type: due to alcoholic cirrhosis Qualified Code(s): K70.31 - Alcoholic cirrhosis of liver with ascites Abdominal pain Qualifiers: Abdominal location: upper abdomen, unspecified Qualified Code(s): R10.10 - Upper abdominal pain, unspecified Disposition: 01 HOME / SELF CARE / HOMELESS Is pt being admited?: No Condition: Stable Instructions: Ascites, Pain Without a Known Cause, Nosebleed, [id number] Prescriptions: Furosemide [Lasix] 40 mg PO DAILY 30 Days #30 HYDROcodone/APAP 5-325 [[place] 5/325] 1 each PO Q6HR PRN #12 tablet PRN Reason: Pain Pantoprazole [Protonix TAB] 40 mg PO BID #60 tablet Time of Disposition: 08:22
== END 2022-03-03 09:04 | disposition home or self-care (01) ==
LOC: ED 06:36
DX: R04.0 Epistaxis (principal); R10.9 Unspecified abdominal pain; R18.8 Other ascites; I10 Essential (primary) hypertension; K76.9 Liver disease, unspecified; Z91.09 Other allergy status, other than to drugs and biological substances; Z87.891 Personal history of nicotine dependence; Z79.899 Other long term (current) drug therapy
CPT/HCPCS: 99283